=== PATIENT | male | born 1975 | race Caucasian/White ===

== ENCOUNTER 2016-10-10 22:16 | Emergency (ER) | payer OTHER ==
[2016-10-10 22:50] VITALS: BP 134/87; PULSE 71; RESP 18; TEMP 97.9
[2016-10-11] MEDS ORDERED: chlordiazePOXIDE 25 MG CAP PO STA (00:54)
--- NOTE | 2016-10-11 01:05 | ED ---
Recheck HPI - General Chief Complaint: Recheck/Abnormal Lab/Rx Stated Complaint: Shaking/Detox Time Seen by Provider: 10/11/16 00:49 Source: patient, RN notes reviewed Mode of arrival: ambulatory Limitations: no limitations - History of Present Illness Initial Comments: Patient is a 40 year old male with a history of chronic alcohol abuse stating that he wants medications to help him go through detox. He reports last drink was 4 hours ago. Patients BAT was .171. Patient states he plans to go to [facility] on Sunday of next week. Patient states that he has been to rehab in the past. Patient denies any other drug use besides alcohol. Patient state he has drank since he was 14 years old and drinks nearly a fifth a day. Patient reports he is already going through withdrawals, and feels shaky and nauseated. Patient denies any other stymptoms. - Related Data Previous Rx's Medication Instructions Recorded LORazepam [Ativan] 1 mg PO TID #20 tab 10/11/16 Ondansetron [Zofran] 4 mg PO Q8HR PRN #8 tab 10/11/16 Allergies Allergy/AdvReac Type Severity Reaction Status Date / Time No Known Allergies Allergy Verified 10/10/16 22:50 Review of Systems ROS Statement: Those systems with pertinent positive or pertinent negative responses have been documented in the HPI. ROS Other: All systems not noted in ROS Statement are negative. Past Medical History Additional Past Medical History / Comment(s): HX OF BLOOD IN STOOL, HX OF MONO PAST MONTH History of Any Multi-Drug Resistant Organisms: MRSA Date of last positivie culture/infection: 2007 MDRO Source:: LEG Past Surgical History: Tonsillectomy Past Anesthesia/Blood Transfusion Reactions: No Reported Reaction Past Psychological History: Anxiety, Bipolar, Depression Smoking Status: Current every day smoker Past Alcohol Use History: Abuse, Daily, Heavy Additional Past Alcohol Use History / Comment(s): STATES RECOVERING ALCHOHOLIC AND CRACK COCAINE USE. HAS NOT USED IN 3 MONTHS Past Drug Use History: Marijuana Additional Drug Use History / Comment(s): HX OF CRACK USE, GREATER THAN 3 MONTHS SINCE LAST USED - Past Family History Mother Family Medical History: No Reported History General Exam - General Exam Comments Initial Comments: Well appearing 40 year old male. Patient is in no acute didstress. Alert and Oriented X3. Limitations: no limitations General appearance: alert, in no apparent distress Head exam: Present: atraumatic, normocephalic, normal inspection Eye exam: Present: normal appearance, PERRL, EOMI. Absent: scleral icterus, conjunctival injection, periorbital swelling ENT exam: Present: normal exam, mucous membranes moist Neck exam: Present: normal inspection. Absent: tenderness, meningismus, lymphadenopathy Respiratory exam: Present: normal lung sounds bilaterally. Absent: respiratory distress, wheezes, rales, rhonchi, stridor Cardiovascular Exam: Present: regular rate, normal rhythm, normal heart sounds. Absent: systolic murmur, diastolic murmur, rubs, gallop, clicks Extremities exam: Present: normal inspection, full ROM, normal capillary refill. Absent: tenderness, pedal edema, joint swelling, calf tenderness Back exam: Present: normal inspection Neurological exam: Present: alert, oriented X3, CN II-XII intact Psychiatric exam: Present: normal affect, agitated (Patient was extremely agitated with wait time to be seen and was rude to physician and nursing staff. ). Absent: normal mood Skin exam: Present: warm, dry, intact, normal color. Absent: rash Course Vital Signs 10/10/16 22:48 Temperature 97.9 F Pulse Rate 71 Respiratory 18 Rate Blood Pressure 134/87 O2 Sat by Pulse 96 Oximetry Medical Decision Making - Medical Decision Making Patient is a 40 year old male with a history of heavy alcohol abuse wanting to have help with detox. Patient reports he drinks near a fifth a day. This is his second time going thorugh treatment. He was sober 9 months ago. He states he is going to [facility] in one week. Patient reports he is already going through withdrawals, but BAT is .117. Patient given Librium in EC. Patient was extremely agitated and forceful with staff about wait times. I explained to patient that the EC is extremely busy at this time, and we are trying our best for everyone. Patient replied with cursing and with a foul attitude. Patients vital signs are stable, no physical exam findings. PAtient disharged with Ativan Rx, and Zofran Rx. Return parameters discussed. Disposition Clinical Impression: Alcohol withdrawal Disposition: HOME SELF-CARE Condition: Good Prescriptions: LORazepam [Ativan] 1 mg PO TID #20 tab Ondansetron [Zofran] 4 mg PO Q8HR PRN #8 tab PRN Reason: Nausea And Vomiting Referrals: Mayuri Conner MD [Primary Care Provider] - 1-2 days Time of Disposition: 01:05
[2016-10-11] MEDS ORDERED: ONDANSETRON 4 MG ODT STARTER PACK 2 TAB BTL PO STA (01:30)
[2016-10-11] MEDS ORDERED: LORazepam 1 MG TAB PO STA (01:31)
== END 2016-10-11 01:44 | disposition home or self-care (01) ==
LOC: EC 22:16
DX: F10.239 Alcohol dependence with withdrawal, unspecified (principal); Y90.5 Blood alcohol level of 100-119 mg/100 ml; F17.200 Nicotine dependence, unspecified, uncomplicated; Z86.14 Personal history of Methicillin resistant Staphylococcus aureus infection
CPT/HCPCS: 99283; S0119

== ENCOUNTER 2017-02-13 16:38 | Observation (INO) | payer OTHER ==
[2017-02-13] MEDS ORDERED: HYDROmorphone 1 MG/ML 1 ML SYRINGE IVP STA (17:10)
[2017-02-13] MEDS ORDERED: PANTOPRAZOLE 40 MG/10 ML VIAL IVP STA (17:10)
[2017-02-13] MEDS ORDERED: SODIUM CHLORIDE 0.9% 1,000 ML IV STA (17:10)
[2017-02-13] MEDS ORDERED: ONDANSETRON 4 MG/2 ML VIAL IVP STA (17:10)
--- NOTE | 2017-02-13 17:16 | ED ---
Abdominal Pain HPI - General Chief Complaint: Abdominal Pain Stated Complaint: Abd Pain Time Seen by Provider: 02/13/17 17:00 Source: patient, RN notes reviewed, old records reviewed Mode of arrival: ambulatory Limitations: no limitations - History of Present Illness Initial Comments: This is a 41-year-old male presenting to the emergency department with chief complaint of lower abdominal pain. Patient reports that he's had pain off and on for the past 4 months. Patient reports that the pain will occur for 4 days and then have a day of relief and then will recur again. He reports he has seen Dr. Lux primary care physician recently was prescribed Bentyl and antibiotic. Patient reports that was no help. Patient also reports that he has had significant blood in his stool. Patient states that he had 2 episodes of bloody diarrhea yesterday. Patient reports that he the pain mainly is located in the lower left quadrant radiating into left upper quadrant. She reports that the pain occasionally radiates to his back. She denies any vomiting. It is noted in the patient's chart that he was seen in the emergency Department 4 months ago for alcohol withdrawals. Patient denies any recent alcohol use, patient reports that he has been sober for the past 4 months. Patient denies any recent fever, chills, shortness of breath, chest pain, numbness or tingling, dysuria or hematuria, constipation or diarrhea, headaches or visual changes, or any other current symptoms - Related Data Home Medications Medication Instructions Recorded Confirmed Escitalopram [Lexapro] 20 mg PO DAILY 02/13/17 02/13/17 Multivitamins, Thera [Multivitamin 1 tab PO DAILY 02/13/17 02/13/17 (formulary)] Allergies Allergy/AdvReac Type Severity Reaction Status Date / Time No Known Allergies Allergy Verified 02/13/17 17:10 Review of Systems ROS Statement: Those systems with pertinent positive or pertinent negative responses have been documented in the HPI. ROS Other: All systems not noted in ROS Statement are negative. Past Medical History Additional Past Medical History / Comment(s): HX OF BLOOD IN STOOL, HX OF MONO PAST MONTH History of Any Multi-Drug Resistant Organisms: MRSA Date of last positivie culture/infection: 2007 MDRO Source:: LEG Past Surgical History: Tonsillectomy Past Anesthesia/Blood Transfusion Reactions: No Reported Reaction Past Psychological History: Anxiety, Bipolar, Depression Smoking Status: Current every day smoker Past Alcohol Use History: Abuse, Daily, Heavy Additional Past Alcohol Use History / Comment(s): STATES RECOVERING ALCHOHOLIC AND CRACK COCAINE USE. HAS NOT USED IN 3 MONTHS Past Drug Use History: Marijuana Additional Drug Use History / Comment(s): HX OF CRACK USE, GREATER THAN 3 MONTHS SINCE LAST USED - Past Family History Mother Family Medical History: No Reported History General Exam - General Exam Comments Initial Comments: Pleasant 41-year-old male. No acute distress. Limitations: no limitations General appearance: alert Head exam: Present: atraumatic, normocephalic, normal inspection Eye exam: Present: normal appearance, PERRL, EOMI. Absent: scleral icterus, conjunctival injection, periorbital swelling ENT exam: Present: normal exam, mucous membranes moist Neck exam: Present: normal inspection. Absent: tenderness, meningismus, lymphadenopathy Respiratory exam: Present: normal lung sounds bilaterally. Absent: respiratory distress, wheezes, rales, rhonchi, stridor Cardiovascular Exam: Present: regular rate, normal rhythm, normal heart sounds. Absent: systolic murmur, diastolic murmur, rubs, gallop, clicks GI/Abdominal exam: Present: soft, tenderness (Left lower quadrant left upper quadrant tenderness.), normal bowel sounds. Absent: distended, guarding, rebound, rigid Extremities exam: Present: normal inspection, full ROM, normal capillary refill. Absent: tenderness, pedal edema, joint swelling, calf tenderness Back exam: Present: normal inspection Neurological exam: Present: alert, oriented X3, CN II-XII intact Psychiatric exam: Present: normal affect, normal mood Skin exam: Present: warm, dry, intact, normal color. Absent: rash Course Vital Signs 02/13/17 16:49 Temperature 97.8 F Pulse Rate 75 Respiratory 20 Rate Blood Pressure 111/64 O2 Sat by Pulse 99 Oximetry Medical Decision Making - Medical Decision Making This is a 41-year-old male presenting to the emergency department with chief complaint of lower abdominal pain. Patient reports that he's had pain off and on for the past 4 months. Patient reports that the pain will occur for 4 days and then have a day of relief and then will recur again. He reports he has seen Dr. Lux primary care physician recently was prescribed Bentyl and antibiotic. Patient reports that was no help. Patient also reports that he has had significant blood in his stool. Patient states that he had 2 episodes of bloody diarrhea yesterday. Patient reports that he the pain mainly is located in the lower left quadrant radiating into left upper quadrant. She reports that the pain occasionally radiates to his back. She denies any vomiting. It is noted in the patient's chart that he was seen in the emergency Department 4 months ago for alcohol withdrawals. Patient denies any recent alcohol use, she reports he has been sober for the past 4 months. Labwork was reviewed. Patient has elevated amylase and lipase. Discusses history Dr. Menezes. Patient be admitted for pancreatitis, this is likely related to chronic pain return to history of alcoholism however patient does state that he has not drank recently to cause an acute attack of this. Patient is still concerned about his abnormal bowel movements and rectal pain. Discussed that the admitting physician can further evaluate this. - Lab Data Result diagrams: 02/13/17 17:35 02/13/17 17:35 Lab Results 02/13/17 02/13/17 02/13/17 Range/Units 17:35 17:35 17:35 WBC 8.1 (3.8-10.6) k/uL RBC 5.08 (4.30-5.90) m/uL Hgb 14.6 (13.0-17.5) gm/dL Hct 44.4 (39.0-53.0) % MCV 87.3 (80.0-100.0) fL MCH 28.7 (25.0-35.0) pg MCHC 32.9 (31.0-37.0) g/dL RDW 14.3 (11.5-15.5) % Plt Count 198 (150-450) k/uL Neutrophils % 60 % Lymphocytes % 28 % Monocytes % 6 % Eosinophils % 3 % Basophils % 1 % Neutrophils # 4.9 (1.3-7.7) k/uL Lymphocytes # 2.3 (1.0-4.8) k/uL Monocytes # 0.5 (0-1.0) k/uL Eosinophils # 0.3 (0-0.7) k/uL Basophils # 0.0 (0-0.2) k/uL PT 10.7 (9.0-12.0) sec INR 1.1 (<1.1) APTT 26.1 (22.0-30.0) sec Sodium 142 (137-145) mmol/L Potassium 3.9 (3.5-5.1) mmol/L Chloride 107 (98-107) mmol/L Carbon Dioxide 24 (22-30) mmol/L Anion Gap 11 mmol/L BUN 13 (9-20) mg/dL Creatinine 1.05 (0.66-1.25) mg/dL Est GFR (MDRD) Af Amer >60 (>60 ml/min/1.73 sqM) Est GFR (MDRD) Non-Af >60 (>60 ml/min/1.73 sqM) Glucose 92 (74-99) mg/dL Calcium 9.6 (8.4-10.2) mg/dL Total Bilirubin 0.5 (0.2-1.3) mg/dL AST 21 (17-59) U/L ALT 27 (21-72) U/L Alkaline Phosphatase 49 (38-126) U/L Total Protein 6.9 (6.3-8.2) g/dL Albumin 4.3 (3.5-5.0) g/dL Amylase 133 H (30-110) U/L Lipase 525 H (23-300) U/L Urine Color Urine Appearance (Clear) Urine pH (5.0-8.0) Ur Specific [place] (1.001-1.035) Urine Protein (Negative) Urine Glucose (UA) (Negative) Urine Ketones (Negative) Urine Blood (Negative) Urine Nitrite (Negative) Urine Bilirubin (Negative) Urine Urobilinogen (<2.0) mg/dL Ur Leukocyte Esterase (Negative) Stool Occult Blood (Negative) 02/13/17 02/13/17 Range/Units 18:00 18:30 WBC (3.8-10.6) k/uL RBC (4.30-5.90) m/uL Hgb (13.0-17.5) gm/dL Hct (39.0-53.0) % MCV (80.0-100.0) fL MCH (25.0-35.0) pg MCHC (31.0-37.0) g/dL RDW (11.5-15.5) % Plt Count (150-450) k/uL Neutrophils % % Lymphocytes % % Monocytes % % Eosinophils % % Basophils % % Neutrophils # (1.3-7.7) k/uL Lymphocytes # (1.0-4.8) k/uL Monocytes # (0-1.0) k/uL Eosinophils # (0-0.7) k/uL Basophils # (0-0.2) k/uL PT (9.0-12.0) sec INR (<1.1) APTT (22.0-30.0) sec Sodium (137-145) mmol/L Potassium (3.5-5.1) mmol/L Chloride (98-107) mmol/L Carbon Dioxide (22-30) mmol/L Anion Gap mmol/L BUN (9-20) mg/dL Creatinine (0.66-1.25) mg/dL Est GFR (MDRD) Af Amer (>60 ml/min/1.73 sqM) Est GFR (MDRD) Non-Af (>60 ml/min/1.73 sqM) Glucose (74-99) mg/dL Calcium (8.4-10.2) mg/dL Total Bilirubin (0.2-1.3) mg/dL AST (17-59) U/L ALT (21-72) U/L Alkaline Phosphatase (38-126) U/L Total Protein (6.3-8.2) g/dL Albumin (3.5-5.0) g/dL Amylase (30-110) U/L Lipase (23-300) U/L Urine Color Yellow Urine Appearance Clear (Clear) Urine pH 6.0 (5.0-8.0) Ur Specific [place] 1.011 (1.001-1.035) Urine Protein Negative (Negative) Urine Glucose (UA) Negative (Negative) Urine Ketones Negative (Negative) Urine Blood Negative (Negative) Urine Nitrite Negative (Negative) Urine Bilirubin Negative (Negative) Urine Urobilinogen <2.0 (<2.0) mg/dL Ur Leukocyte Esterase Negative (Negative) Stool Occult Blood Negative (Negative) - Radiology Data Radiology results: report reviewed KUB was reviewed negative for any significant bowel obstruction or acute process. Disposition Clinical Impression: Pancreatitis Disposition: ADMITTED IP TO THIS [facility] Condition: Good Referrals: Mayuri Conner MD [Primary Care Provider] - 1-2 days Time of Disposition: 18:26
[2017-02-13 17:54] LABS: Basophils % (A) 1 %; CH 29.5; CHCM 33.9; Eosinophils # (A) 0.3 k/uL (0-0.7); Eosinophils % (A) 3 %; HCT 44.4 % (39.0-53.0); HDW 2.69; HGB 14.6 gm/dL (13.0-17.5); Luc # (Auto) 0.18; Luc % (Auto) 2; Lymphocytes # (A) 2.3 k/uL (1.0-4.8); Lymphocytes % (A) 28 %; MCH 28.7 pg (25.0-35.0); MCHC 32.9 g/dL (31.0-37.0); MCV 87.3 fL (80.0-100.0); Mean Platelet Volume 7.7; Monocytes # (A) 0.5 k/uL (0-1.0); Monocytes % (A) 6 %; Neutrophils # (A) 4.9 k/uL (1.3-7.7); Neutrophils % (A) 60 %; RBC 5.08 m/uL (4.30-5.90); RDW 14.3 % (11.5-15.5); WBC 8.1 k/uL (3.8-10.6); WBC (Perox) 7.48
[2017-02-13 17:56] LABS: ALT 27 U/L (21-72); AST 21 U/L (17-59); Alkaline Phosphatase 49 U/L (38-126); Amylase 133 U/L (30-110); Anion Gap 11 mmol/L; Blood Urea Nitrogen 13 mg/dL (9-20); Calcium 9.6 mg/dL (8.4-10.2); Carbon Dioxide 24 mmol/L (22-30); Chloride 107 mmol/L (98-107); Glucose 92 mg/dL (74-99); INR 1.1 (<1.1); Non-African American GFR(MDRD) >60 (>60 ml/min/1.73 sqM); Partial Thromboplastin Time 26.1 sec (22.0-30.0); Potassium 3.9 mmol/L (3.5-5.1); Prothrombin Time 10.7 sec (9.0-12.0); Sodium 142 mmol/L (137-145); Total Bilirubin 0.5 mg/dL (0.2-1.3); Total Protein 6.9 g/dL (6.3-8.2)
[2017-02-13] MEDS ORDERED: ONDANSETRON 4 MG/2 ML VIAL IVP PRN (18:27)
[2017-02-13] MEDS ORDERED: HYDROmorphone 1 MG/ML 1 ML SYRINGE IV PRN (18:27)
[2017-02-13] MEDS ORDERED: NALOXONE 0.4 MG/ML 1 ML VIAL IV PRN (18:27)
[2017-02-13] MEDS ORDERED: LORazepam 2 MG/ML SYRINGE IV PRN (18:27)
[2017-02-13 18:37] LABS: Appearance,Urine Clear (Clear); Bilirubin,Urine Negative (Negative); Glucose,Urine (UA) Negative (Negative); Ketones,Urine Negative (Negative); Leukocyte Esterase,Urine Negative (Negative); Nitrite,Urine Negative (Negative); Protein,Urine Negative (Negative); Specific Gravity,Urine 1.011 (1.001-1.035); UA Billing (MACRO vs. MICRO) CHEM; Urobilinogen,Urine <2.0 mg/dL (<2.0)
--- NOTE | 2017-02-13 18:47 | XR ---
EXAMINATION TYPE: XR KUB DATE OF EXAM: 02/13/2017 COMPARISON: NONE HISTORY: Left lower quadrant pain TECHNIQUE: 2 views FINDINGS: I see no sign of intestinal obstruction or pneumoperitoneum. Fecal pattern is normal. Lung bases are clear. There are no pathologic calcifications over the kidneys. Bony structures are intact. IMPRESSION: Nonacute abdomen.
[2017-02-13] MEDS: Acetaminophen-Codeine 300-30mg TAB PO PRN ×2 (18:57→23:00)
[2017-02-13] MEDS: SODIUM CHLORIDE 0.9% 1,000 ML IV SCH (19:57)
[2017-02-13] MEDS ORDERED: RX INFO: IV CONTRAST WAS GIVEN 1 EACH MISC MISCELLANE PRN (22:27)
[2017-02-13] MEDS: CALCIUM CARBONATE LIQUID 500 MG/5 ML CUP PO SCH (22:34)
[2017-02-13] MEDS: PANTOPRAZOLE 40 MG TABLET PO SCH (22:36)
[2017-02-14] MEDS: SODIUM CHLORIDE 0.9% 1,000 ML IV SCH ×3 (03:21→20:32)
[2017-02-14] MEDS: Acetaminophen-Codeine 300-30mg TAB PO PRN ×4 (06:56→20:30)
[2017-02-14] MEDS: IOHEXOL 350 MG/ML 25 ML BOTTLE (ORAL USE) PO PRN ×2 (06:56→08:11)
--- NOTE | 2017-02-14 07:42 | HP ---
DATE OF ADMISSION: 02/13/2017 PRESENTING COMPLAINT: Abdominal pain, nausea. HISTORY OF PRESENTING COMPLAINT: This is a very pleasant man 41-year-old patient of Dr. Mayuri Cox who has got a history of hemorrhoids, was drinking 6 to 12 beers a day, stopped 4 months ago. Also was taking marijuana, stopped doing crack cocaine about 3 years ago. Patient smokes a pack a day of cigarettes. Patient has got left lower abdominal pain, going on and off for about 4 months. He had bouts of severe increased pain and decreased nausea. Last 2 days, patient had increasing loose stools about 6 to 12. No blood. Appetite has gone down, loss some weight. Admitted for the same. REVIEW OF SYSTEMS: CONSTITUTIONAL: Weak, tired, loss of appetite. HEENT: None. RESPIRATORY: None. CARDIOVASCULAR: None. GASTROINTESTINAL: As above. GENITOURINARY: None. MUSCULOSKELETAL: None. DERMATOLOGIC: None. HEMATOLOGIC: None. LYMPHATICS: None. PSYCHIATRY: Some anxiety. NEUROLOGICAL: None. PAST MEDICAL HISTORY: Intermittent blood in the stools had colonoscopy showing diverticulosis, hemorrhoids. Diarrhea 6 to 12 times a day and appetite has not been good. PAST SURGICAL HISTORY: Tonsillectomy, colonoscopy. PSYCH HISTORY: Bipolar. SOCIAL HISTORY: The patient lives with his girlfriend, has a 4-month-old son. Currently not working. From a previous girlfriend has 6-year-old child who is in [place]. He does not know the whereabouts. Smokes about a pack a day. Recovered alcoholic in 4 months, crack cocaine use 3 years ago, marijuana use, currently. FAMILY HISTORY: Reviewed noncontributory on presentation. HOME MEDICATIONS: 1. Multivitamin 1 tablet p.o. daily. 2. Lexapro 20 mg p.o. daily. ALLERGIES: None. On examination, temperature 97.1, pulse 50, respiration 16, blood pressure 108/61, pulse ox 96% on room air. GENERAL APPEARANCE: Average built, sitting up, anxious appearing. EYES: Pupils equal. Conjunctivae normal. HEENT: Oral cavity normal. NECK: JVD not raised. Mass not palpable. RESPIRATORY: Effort normal. Lungs are clear. CARDIOVASCULAR: First and second sounds normal. No edema. ABDOMEN: Soft, some left abdomen tenderness. No guarding or rigidity. Liver and spleen not palpable. LYMPHATIC: No lymph palpable in neck or axillae. PSYCHIATRY: Alert and oriented x3. Mood is slightly anxious appearing. NEUROLOGICAL: Pupils equal. Cranial nerves grossly intact. Power and sensation grossly intact. INVESTIGATIONS: Nonspecific abdomen. ASSESSMENT: 1. This is a patient who presented with left abdominal pain with intermittent diarrhea, intermittent blood. Patient may have low-grade colitis. 2. Possible acute on chronic gastritis from alcoholism. 3. Chronic nicotine dependence. 4. Hemorrhoids. 5. Chronic marijuana use. 6. Acute pancreatitis secondary to alcoholism, present on admission. PLAN: Will order a CT scan of the abdomen and pelvis. Will put the patient on IV ceftriaxone, put the patient on a liquid diet. Counseled against smoking, given a nicotine patch. Will also put the patient on proton pump inhibitor and some Tums for the GI lining. Gastroenterology will be consulted. Care was discussed with the patient.
[2017-02-14] MEDS: CALCIUM CARBONATE LIQUID 500 MG/5 ML CUP PO SCH ×3 (08:53→18:29)
[2017-02-14] MEDS: NICOTINE 21MG/24HR PATCH TRANSDERM SCH (08:53)
[2017-02-14] MEDS: ESCITALOPRAM 20 MG TAB PO SCH (08:54)
[2017-02-14 09:14] LABS: Basophils % (A) 1 %; CH 29.1; CHCM 33.8; Eosinophils # (A) 0.4 k/uL (0-0.7); Eosinophils % (A) 6 %; HDW 2.88; HGB 13.6 gm/dL (13.0-17.5); Luc # (Auto) 0.16; Luc % (Auto) 3; Lymphocytes # (A) 2.4 k/uL (1.0-4.8); Lymphocytes % (A) 42 %; MCH 29.3 pg (25.0-35.0); MCHC 33.9 g/dL (31.0-37.0); MCV 86.5 fL (80.0-100.0); Mean Platelet Volume 7.6; Monocytes # (A) 0.3 k/uL (0-1.0); Monocytes % (A) 6 %; Neutrophils # (A) 2.4 k/uL (1.3-7.7); Neutrophils % (A) 42 %; RBC 4.63 m/uL (4.30-5.90); WBC 5.6 k/uL (3.8-10.6); WBC (Perox) 5.84
[2017-02-14 09:27] LABS: ALT 25 U/L (21-72); AST 23 U/L (17-59); Alkaline Phosphatase 40 U/L (38-126); Amylase 99 U/L (30-110); Anion Gap 8 mmol/L; Blood Urea Nitrogen 11 mg/dL (9-20); Calcium 8.6 mg/dL (8.4-10.2); Carbon Dioxide 22 mmol/L (22-30); Chloride 110 mmol/L (98-107); Glucose 141 mg/dL (74-99); Non-African American GFR(MDRD) >60 (>60 ml/min/1.73 sqM); Potassium 4.1 mmol/L (3.5-5.1); Sodium 140 mmol/L (137-145); Total Bilirubin 0.6 mg/dL (0.2-1.3); Total Protein 5.7 g/dL (6.3-8.2)
[2017-02-14] MEDS: HYDROmorphone 1 MG/ML 1 ML SYRINGE IVP PRN ×4 (10:39→23:12)
[2017-02-14] MEDS: PANTOPRAZOLE 40 MG TABLET PO SCH (10:51)
[2017-02-14] MEDS: LOPERAMIDE 2 MG CAP PO SCH ×4 (10:55→23:15)
[2017-02-14 11:27] VITALS: BMI 24.3
--- NOTE | 2017-02-14 11:40 | P.CONS ---
History of Present Illness - Reason for Consult Consult date: 02/14/17 Abdominal pain Requesting physician: Clayton Trent - History of Present Illness 41-year-old male with a history of EtOH abuse last alcoholic drink 4 months ago , cocaine last usage about 3 years ago, diverticulosis, hemorrhoids, marijuana usage, anxiety, depression and nicotine cigarette dependency. Admitted with abdominal pain over the last 4 months mostly in the mid to lower abdomen radiating down to his bilateral thighs groin region and upper back. Pain is so severe he states he has intermittent erections. Loose bowel movements blood tinged which he thinks is hemorrhoidal in nature. Afebrile. White count 8.1. Hemoglobin 14.6. INR 1.1. Platelet 198. BUN 13. Creatinine 1.0. Lipase 525. Amylase 133. Lipase today for 14. Amylase 99. LFTs total bilirubin normal. Hemoccult stool negative. C. diff negative. CT abdomen completed this morning results pending at time of dictation. Colonoscopy evaluation March 2016 for intermittent rectal bleeding and to rule out inflammatory bowel disease revealed low-grade internal hemorrhoids not bleeding at time of exam most likely cause of his bleeding. Diverticulosis with no evidence of acute diverticulitis or strictures. No polyps or cancer seen. Patient states he has another colonosocpy scheduled at the end of this month with Dr. Torres. Review of Systems Constitutional: Denies fever, chills, sweats, weight gain, or loss. HEENT: Negative for migraines, blurred vision or loss, earaches, drainage, tinnitus, oral mucosal lesions, dysphagia, or odynophagia. Cardiac: Negative for chest pain, arrhythmias, or palpitation. Respiratory: Negative for shortness of breath, hemoptysis, cough, or sputum production. Gastrointestinal: See HPI for pertinent findings. Genitourinary: Negative for hematuria, urgency, frequency, polyuria, dysuria, or penile discharge. Musculoskeletal: Negative for muscle aches, swelling, arthritis, and arthralgias. Neurologic: Negative for stroke or TIA. Endocrine: Negative for thyroid problems. Skin: Negative for rash or itching. Psychiatric: Negative history for depression and anxiety All systems: negative (See HPI) Past Medical History Additional Past Medical History / Comment(s): HX OF INTERMITTENT BLOOD IN STOOL HAD COLONOSCOPY - DIVERTICULOSIS,HEMORRHOIDS, HX OF MONO 2016, PALPITATIONS. PT STATED FOR PAST 2 MONTHS HAVING DIARRHEA 6-12 TIMES A DAY AND MAYBE HAVE 1 GOOD DAY OUT OF WEEK WHERE HE DOES'NT(DID'NT HAVE ANY YESTERDAY), "30# WT LOSS OVER 2 MONTHS-APPETITE HAS'NT BEEN GOOD. History of Any Multi-Drug Resistant Organisms: MRSA Year Discovered:: 2007 MDRO Source:: LEGS Past Surgical History: Tonsillectomy Additional Past Surgical History / Comment(s): COLONOSCOPY Past Anesthesia/Blood Transfusion Reactions: No Reported Reaction Past Psychological History: Anxiety, Bipolar, Depression Additional Psychological History / Comment(s): PT STATED HE HAS SOME DEPRESSION BUT HAS NO THOUGHTS OF WANTING TO HARM SELF. PT LIVES WITH GIRL FRIEND AND HAS A 4 MONTH OLD SON. 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 NO OUTSIDE SERVICES. NO MEDICAL EQUIPMENT. NO PETS. NO PAST SERVICE. DOES [employer] WORK. Smoking Status: Current every day smoker Past Alcohol Use History: Abuse, Daily, Heavy Additional Past Alcohol Use History / Comment(s): STATES RECOVERING ALCHOHOLIC HAS'NT DRANK IN 4 MONTHS.PAST CRACK COCAINE USE-"HAS'NT USED IN 3 YEARS". Past Drug Use History: Cocaine, Marijuana Additional Drug Use History / Comment(s): HX OF CRACK USE-LAST USED 3 YEARS AGO. DOES USE MARIJUANA-LAST USED 02-13-17 - Past Family History Mother Family Medical History: No Reported History Father Family Medical History: No Reported History Medications and Allergies Home Medications Medication Instructions Recorded Confirmed Type Escitalopram [Lexapro] 20 mg PO DAILY 02/13/17 02/13/17 History Multivitamins, Thera [Multivitamin 1 tab PO DAILY 02/13/17 02/13/17 History (formulary)] Allergies Allergy/AdvReac Type Severity Reaction Status Date / Time No Known Allergies Allergy Verified 02/13/17 17:10 Physical Exam Vitals: Vital Signs Temp Pulse Pulse Resp BP BP BP 02/14/17 07:00 96.9 F L 50 L 16 118/60 02/13/17 23:00 97.3 F L 56 L 18 108/70 02/13/17 19:31 97.1 F L 50 L 16 108/61 02/13/17 19:11 98.4 F 54 L 18 107/55 02/13/17 16:49 97.8 F 75 20 111/64 Pulse Ox 02/14/17 07:00 98 02/13/17 23:00 98 02/13/17 19:31 96 02/13/17 19:11 97 02/13/17 16:49 99 Intake and Output 02/13/17 02/14/17 02/14/17 22:59 06:59 14:59 Intake Total 0 0 Balance 0 0 Intake: Oral 0 0 Other: # Voids 2 Weight 72.575 kg 72.575 kg Patient Weight 02/15/17 06:59 Weight 72.575 kg General appearance: The patient is alert, oriented, in no acute distress. HET: Head is normocephalic and atraumatic. Pupils are equal and reactive. Oropharynx is clear without lesions. Neck: Supple without lymphadenopathy. Trachea midline. Heart: S1 S2. Regular rate and rhythm. Lungs: No crackles or wheezes are heard. Abdomen: Soft, nontender, nondistended with bowel sounds. No peritoneal signs. No palpable organomegaly or masses. Extremities: Normal skin color and turgor. No cyanosis, rash, ulceration, clubbing, or edema. Radial and pedal pulses are 2/4 bilaterally. Neurological: No focal deficits. Strength and sensation are grossly intact. Results CBC & Chem 7: 02/14/17 08:06 02/14/17 08:06 Labs: Abnormal Lab Results - Last 24 Hours (Table) 02/13/17 02/14/17 Range/Units 17:35 08:06 Chloride 110 H (98-107) mmol/L Glucose 141 H (74-99) mg/dL Total Protein 5.7 L (6.3-8.2) g/dL Albumin 3.4 L (3.5-5.0) g/dL Amylase 133 H (30-110) U/L Lipase 525 H 414 H (23-300) U/L CT scan - abdomen: pending (Dr. Musa) Assessment and Plan (1) Pancreatitis Narrative/Plan: Abdominal pain suspect alcohol-induced pancreatitis which could be contributing to his chronic pain over the last 4 months. Possible pseudocyst. Status: Acute (2) Abdominal pain Status: Acute (3) Hemorrhoids Narrative/Plan: Intermittent rectal bleeding most likely hemorrhoidal in nature possible diverticular status post colonoscopy March 2016 Status: Acute (4) H/O ETOH abuse Status: Acute (5) Cocaine abuse in remission Status: Acute Plan: 1. Symptomatic supportive measures. Await CT findings. Repeat Lipase in am. 2. Continuance of alcohol abstinence. 3. Local hemorrhoidal care. 4. Repeat endoscopy not planned at this time. 5. Full liquid diet. Stool softeners daily to prevent constipation and hemorrhoidal flareups as needed. Bentyl 10 mg 4 times daily to see if this helps with abdominal cramping. Return to office in 1-2 weeks for reevaluation. Thank you for this kind referral and the opportunity to participate in the care of your patient. This consultation was discussed with Dr. Musa. The impression and plan of care have been directed as dictated.
[2017-02-14] MEDS: DICYCLOMINE 10 MG CAP PO SCH ×3 (12:07→23:12)
[2017-02-14] MEDS: MULTIVITAMINS, THERA 1 EACH TAB PO SCH (12:08)
[2017-02-14] MEDS ORDERED: LOPERAMIDE 2 MG CAP PO SCH (13:00)
--- NOTE | 2017-02-14 13:41 | CT ---
EXAMINATION TYPE: CT abdomen pelvis w con DATE OF EXAM: 02/14/2017 COMPARISON: NONE INDICATION: wt loss, diarrhea DLP: 918 mGycm, Automated exposure control for dose reduction was used. CONTRAST: 100 mL of Omnipaque 300. Study performed with Oral Contrast TECHNIQUE: Axial images were obtained from above the diaphragm to the pubic rami in the axial plane a t 5 mm thick sections. Reconstructed images are reviewed on the computer in the coronal plane. FINDINGS: Limited CT sections are obtained the lung bases. The lung bases are clear. CT ABDOMEN: Liver: Normal Spleen: Normal. Spondylosis in the splenic hilum. Pancreas: Normal Adrenal glands: The adrenal glands are normal. Gallbladder: Normal Kidneys: No masses are evident. No hydronephrosis is present. No cysts are present. Delayed images were obtained through the kidneys, which remain unremarkable. Aorta: Vascular calcification is within the aorta. Inferior vena cava: Normal. CT PELVIS: There is mild prominence of the small bowel loops in the left upper quadrant. No obstruction is evide nt. Contrast extends to the rectum. There are loops of bowel which are incompletely distended or lack oral contrast limiting their evaluation. Appendix: Normal as visualized. Urinary bladder: Normal. Genitourinary structures: Prostate contains calcification and may be slightly prominent. Osseous structures: No suspicious lytic or sclerotic lesions. IMPRESSIONS: 1. Mild prominence of the proximal small bowel loops without obstruction.
--- NOTE | 2017-02-14 19:44 | PN ---
DATE OF SERVICE: 02/14/2017 PRESENTING COMPLAINT: Abdominal pain, nausea. INTERVAL HISTORY: This is a patient who was drinking quite a bit. Also doing crack cocaine, marijuana until about 3 years ago, smokes a pack a day, presents with episodes of what appears to be pancreatitis. The patient ( ) actually looking better. Still having some abdominal pain. Diarrhea is settled down. Seen by Gastroenterology earlier today. CT scan did not show any colitis. Review of systems done for constitutional, cardiovascular, GI, pulmonary; relevant findings as above. Current medications are reviewed that include Dilaudid IV q4 hours. On examination, temperature 97.2, pulse 60, respiration 16, blood pressure 108/72, pulse ox 96% on room air. GENERAL APPEARANCE: Sitting up in a chair, comfortable. EYES: Pupils equal. Conjunctivae normal. NECK: JVD not raised. Mass not palpable. RESPIRATORY: Effort normal. Lungs are clear. CARDIOVASCULAR: First and second sounds normal. No edema. ABDOMEN: Very soft. Minimal some deep tenderness. No guarding or rigidity. Liver and spleen not palpable. LYMPHATIC: No lymph nodes palpable in the neck and axilla. Psychiatric: Alert and oriented x3. Mood and affect is normal. INVESTIGATIONS: White count 5.6, potassium 4.1, amylase is 99, lipase 414. ASSESSMENT: 1. Acute pancreatitis with ( ) alcoholism present on admission with biochemical greatly improved even actually amylase is normal. 2. Chronic marijuana use. 3. Hemorrhoids. 4. Chronic nicotine dependence. 5. Possible acute on chronic gastritis from alcoholism. PLAN: The patient is on a rather hefty dose of Dilaudid given that patient Amylase is already normal. Gastroenterology was consulted. We will await further input. If patient gets more pain, we will give heating pad. K-pad. Patient already getting Protonix. Also TUMS was added. Care was discussed with the patient. Follow.
[2017-02-14] MEDS ORDERED: HYDROCORTISONE SUPPOSITORY 25 MG SUPP RECTAL SCH (21:00)
[2017-02-15] MEDS: Acetaminophen-Codeine 300-30mg TAB PO PRN ×3 (00:37→09:37)
[2017-02-15] MEDS: HYDROmorphone 1 MG/ML 1 ML SYRINGE IVP PRN ×2 (02:57→07:53)
[2017-02-15] MEDS: SODIUM CHLORIDE 0.9% 1,000 ML IV SCH ×2 (04:51→11:38)
[2017-02-15 07:59] VITALS: BP 105/61; PULSE 58; RESP 12; TEMP 96.5
[2017-02-15] MEDS: CALCIUM CARBONATE LIQUID 500 MG/5 ML CUP PO SCH ×2 (08:34→11:37)
[2017-02-15] MEDS: PANTOPRAZOLE 40 MG TABLET PO SCH (08:35)
[2017-02-15] MEDS: DICYCLOMINE 10 MG CAP PO SCH ×2 (08:36→12:46)
[2017-02-15] MEDS: ESCITALOPRAM 20 MG TAB PO SCH (08:36)
[2017-02-15] MEDS: NICOTINE 21MG/24HR PATCH TRANSDERM SCH (08:37)
[2017-02-15] MEDS: LOPERAMIDE 2 MG CAP PO SCH ×2 (08:37→12:45)
--- NOTE | 2017-02-15 11:33 | P.PN ---
Subjective Principal diagnosis: Abdominal pain 41-year-old male admitted with chronic abdominal pain diarrhea 4 months. Heavy EtOH in the past quit 4 months ago. Pancreatic enzymes elevated on admission suspect alcohol-induced pancreatitis contributing to most of his symptoms. CT scan abdomen and pelvis reported no evidence of abscess bowel obstruction or pneumoperitoneum. No pancreatic pseudocysts. Still reports abdominal pain. No bleeding. Afebrile. Requesting IV pain medications. Objective - Vital Signs Vital signs: Vital Signs Temp 96.5 F L 02/15/17 07:00 Pulse 58 L 02/15/17 07:00 Resp 12 02/15/17 07:00 BP 105/61 02/15/17 07:00 Pulse Ox 93 L 02/15/17 07:00 Intake & Output 02/14/17 02/15/17 02/15/17 18:59 06:59 18:59 Weight 72.575 kg Other: # Voids 1 2 # Emeses 1 - Exam General appearance: The patient is alert, oriented, in no acute distress. HET: Head is normocephalic and atraumatic. Pupils are equal and reactive. Oropharynx is clear without lesions. Neck: Supple without lymphadenopathy. Trachea midline. Heart: S1 S2. Regular rate and rhythm. Lungs: No crackles or wheezes are heard. Abdomen: Soft, diffuse mild tenderness mostly in the left side extending down to the left groin, nondistended with bowel sounds. No peritoneal signs. No palpable organomegaly or masses. Extremities: Normal skin color and turgor. No cyanosis, rash, ulceration, clubbing, or edema. Radial and pedal pulses are 2/4 bilaterally. Neurological: No focal deficits. Strength and sensation are grossly intact. - Labs CBC & Chem 7: 02/14/17 08:06 02/14/17 08:06 Assessment and Plan (1) Pancreatitis Narrative/Plan: Abdominal pain suspect alcohol-induced pancreatitis which could be contributing to his chronic pain over the last 4 months. Status: Acute (2) Abdominal pain Status: Acute (3) Hemorrhoids Narrative/Plan: Intermittent rectal bleeding most likely hemorrhoidal in nature possible diverticular status post colonoscopy March 2016 Status: Acute (4) H/O ETOH abuse Status: Acute (5) Cocaine abuse in remission Status: Acute Plan: 1. No further workup from a GI standpoint. Colonoscopy 1 year ago with findings of internal hemorrhoids and diverticular disease. Continue with alcohol abstinence. 2. Return to GI office in 1-2 weeks for reevaluation. 3. Symptomatic and supportive care. Assessment and plan of care discussed with Dr. Torres.
[2017-02-15] MEDS: MULTIVITAMINS, THERA 1 EACH TAB PO SCH (11:41)
--- NOTE | 2017-02-16 09:07 | DS ---
DATE OF ADMISSION: 02/13/2017 DATE OF DISCHARGE: 02/15/2017 FINAL DIAGNOSIS(ES): 1. Acute pancreatitis secondary to alcoholism. 2. Chronic marijuana use. 3. Hemorrhoids. 4. Chronic nicotine dependence. 5. Possible acute on chronic gastritis from alcoholism. HOSPITAL COURSE: This patient presented with diarrhea, abdominal pain. Doing much better by the time of discharge. CT scan of the abdomen and pelvis was unremarkable. Seen by Dr. Hayley Musa from Gastroenterology. Spoke to Lovely Sampson today. Patient okay to be discharged. Dr. Musa did see the patient last night. The patient tolerating some diet. Patient did follow with her in the office. Told him to keep away from alcohol. On exam: ABDOMEN: Soft. Minimal tenderness. The patient is afebrile. Normal white count. DISCHARGE MEDICATION: 1. Lexapro 20 mg a day. 2. Multivitamin 1 tablet p.o. daily. 3. Bentyl 10 mg p.o. q.i.d. 4. Nicotine 20 mg patch. Follow up with ( ) 02/19/[address] Hayley Musa 02/26/2017. Diet: Soft.
== END 2017-02-15 15:13 | disposition home or self-care (01) ==
LOC: EC 16:38 → 4MS4W 18:51
PROVIDERS: ADMIT Hospitalist; ATTEND Hospitalist
DX: K85.20 Alcohol induced acute pancreatitis without necrosis or infection (principal); F17.210 Nicotine dependence, cigarettes, uncomplicated; F10.10 Alcohol abuse, uncomplicated; F14.10 Cocaine abuse, uncomplicated; F12.90 Cannabis use, unspecified, uncomplicated; K64.9 Unspecified hemorrhoids; F41.9 Anxiety disorder, unspecified; F31.9 Bipolar disorder, unspecified; Z79.899 Other long term (current) drug therapy; Z86.14 Personal history of Methicillin resistant Staphylococcus aureus infection; K62.5 Hemorrhage of anus and rectum
CPT/HCPCS: 36415; 74000; 74177; 80053; 81003; 82150; 82272; 83690; 85025; 85610; 85730; 87324; 96361; 96374; 96375; 96376; 99285

== ENCOUNTER 2024-06-30 21:05 | Emergency (ER) | payer OTHER ==
[2024-06-30 21:25] VITALS: BP 100/60; PULSE 67; RESP 18; TEMP 97.5
--- NOTE | 2024-06-30 21:25 | ED ---
General Adult HPI - General Stated complaint: Syncope, ETOH Time Seen by Provider: 06/30/24 21:07 - History of Present Illness Initial comments: Patient is a 48-year-old man who has history of previous withdrawal seizures, brought by ambulance to have evaluation after he believes he had another withdrawal seizure. Patient states that he had been sober for a period of time and then went back to drinking a little over a month ago. He is drinking 2-3/5 of liquor per day. Patient states that he believes he had a seizure as he woke up on the floor. EMS was called and transported him here. Patient is denying injury. He denies headache, back, chest or abdomen pain. No extremity injuries. -: minutes(s) Severity scale (1-10): 0 Consistency: constant Improves with: none Worsens with: none Associated Symptoms: nausea/vomiting Treatments Prior to Arrival: none - Related Data Home Medications Medication Instructions Recorded Confirmed Escitalopram [Lexapro] 20 mg PO DAILY 02/13/17 07/04/24 Fexofenadine HCl [Jewels Allergy] 60 mg PO BID 07/02/24 07/04/24 Naproxen [Naprosyn] 500 mg PO BID 07/02/24 07/04/24 Propranolol [Inderal] 20 mg PO BID 07/02/24 07/04/24 buPROPion XL [Wellbutrin XL] 300 mg PO DAILY 07/02/24 07/04/24 cloNIDine HCL [Catapres] 0.1 - 0.2 mg PO BID PRN 07/02/24 07/04/24 Previous Rx's Medication Instructions Recorded Nicotine 21Mg/24Hr Patch [Habitrol] 1 patch TRANSDERM DAILY #14 patch 02/15/17 LORazepam [Ativan] 1 mg PO TID 2 Days #6 tab 06/30/24 Allergies Allergy/AdvReac Type Severity Reaction Status Date / Time No Known Allergies Allergy Verified 07/04/24 12:44 Review of Systems ROS Statement: Those systems with pertinent positive or pertinent negative responses have been documented in the HPI. ROS Other: All systems not noted in ROS Statement are negative. Constitutional: Denies: fever, chills, weakness Eyes: Denies: vision change Respiratory: Denies: cough, dyspnea Cardiovascular: Denies: chest pain, palpitations, edema Gastrointestinal: Reports: nausea. Denies: abdominal pain, vomiting, diarrhea, hematemesis, melena, hematochezia Genitourinary: Denies: dysuria, hematuria Musculoskeletal: Denies: back pain Skin: Denies: rash Neurological: Denies: headache, weakness, numbness, paresthesias Past Medical History Additional Past Medical History / Comment(s): HX OF INTERMITTENT BLOOD IN STOOL HAD COLONOSCOPY - DIVERTICULOSIS,HEMORRHOIDS, HX OF MONO 2016, PALPITATIONS. PT STATED FOR PAST 2 MONTHS HAVING DIARRHEA 6-12 TIMES A DAY AND MAYBE HAVE 1 GOOD DAY OUT OF WEEK WHERE HE DOES'NT(DID'NT HAVE ANY YESTERDAY), "30# WT LOSS OVER 2 MONTHS-APPETITE HAS'NT BEEN GOOD. History of Any Multi-Drug Resistant Organisms: MRSA Date of last positivie culture/infection: 2007 MDRO Source:: LEGS Past Surgical History: Tonsillectomy Additional Past Surgical History / Comment(s): COLONOSCOPY Past Anesthesia/Blood Transfusion Reactions: No Reported Reaction Past Psychological History: Anxiety, Bipolar, Depression Additional Psychological History / Comment(s): PT STATED HE HAS SOME DEPRESSION BUT HAS NO THOUGHTS OF WANTING TO HARM SELF. PT LIVES WITH GIRL FRIEND AND HAS A 4 MONTH OLD SON. 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 NO OUTSIDE SERVICES. NO MEDICAL EQUIPMENT. NO PETS. NO PAST SERVICE. DOES [employer] WORK. Past Alcohol Use History: Abuse, Daily, Heavy Additional Past Alcohol Use History / Comment(s): STATES RECOVERING ALCHOHOLIC HAS'NT DRANK IN 4 MONTHS.PAST CRACK COCAINE USE-"HAS'NT USED IN 3 YEARS". Past Drug Use History: Cocaine, Marijuana Additional Drug Use History / Comment(s): HX OF CRACK USE-LAST USED 3 YEARS AGO. DOES USE MARIJUANA-LAST USED 6--17 - Past Family History Mother Family Medical History: No Reported History Father Family Medical History: No Reported History General Exam General appearance: alert, in no apparent distress Head exam: Present: atraumatic, normocephalic Eye exam: Present: normal appearance, PERRL, EOMI. Absent: scleral icterus, conjunctival injection, nystagmus ENT exam: Present: mucous membranes dry Neck exam: Present: normal inspection. Absent: tenderness, meningismus, full ROM Respiratory exam: Present: normal lung sounds bilaterally. Absent: respiratory distress, wheezes, rales, rhonchi, stridor, accessory muscle use Cardiovascular Exam: Present: regular rate, normal rhythm, normal heart sounds. Absent: systolic murmur, diastolic murmur, rubs, gallop GI/Abdominal exam: Present: soft. Absent: distended, tenderness, guarding, rebound, rigid, mass Extremities exam: Present: normal inspection, normal capillary refill. Absent: pedal edema, calf tenderness Back exam: Present: normal inspection. Absent: vertebral tenderness Neurological exam: Present: alert, oriented X3, CN II-XII intact. Absent: motor sensory deficit Skin exam: Present: warm, dry, intact, normal color. Absent: rash Course Vital Signs 06/30/24 21:20 Temperature 97.5 F L Pulse Rate 67 Respiratory 18 Rate Blood Pressure 100/60 O2 Sat by Pulse 97 Oximetry Medical Decision Making - Medical Decision Making Was pt. sent in by a medical professional or institution ([facility], WALL WORKER, urgent care, hospital, or alf...) When possible be specific @ -[No] Did you speak to anyone other than the patient for history (EMS, parent, family, police, friend...)? What history was obtained from this source @ -[No] Did you review nursing and triage notes (agree or disagree)? Why? @ -[I reviewed and agree with nursing and triage notes] Were old charts reviewed (outside hosp., previous admission, EMS record, old EKG, old radiological studies, urgent care reports/EKG's, alf records)? Report findings @ -[No old charts were reviewed] Differential Diagnosis (chest pain, altered mental status, abdominal pain women, abdominal pain men, vaginal bleeding, weakness, fever, dyspnea, syncope, headache, dizziness, GI bleed, back pain, seizure, CVA, palpatations, mental health, musculoskeletal)? @ -[Differential Mental Health Depression, anxiety, bipolar, psychosis, schizophrenia, borderline personality, situational depression, adjustment disorder, behavioral disorder, brain tumor, malingering, substance abuse, encephalopathy, medication reaction, dementia, hypothyroidism, degenerative neurologic disorder, lupus.... This is not meant to be all-inclusive list EKG interpreted by me (3pts min.). @ -[As above] X-rays interpreted by me (1pt min.). @ -[None done] CT interpreted by me (1pt min.). @ -[None done] U/S interpreted by me (1pt. min.). @ -[None done] What testing was considered but not performed or refused? (CT, X-rays, U/S, labs)? Why? @ -[None] What meds were considered but not given or refused? Why? @ -[None] Did you discuss the management of the patient with other professionals (lena arevalo i.e. , PA, WALL WORKER, lab, RT, psych nurse, clinical social worker, auto clutch rebuilder, teacher, multisensor intelligence officer, counter caser)? Give summary @ -[No] Was smoking cessation discussed for >3mins.? @ -[No] Was critical care preformed (if so, how long)? @ -[No] Were there social determinants of health that impacted care today? How? (Homelessness, low income, unemployed, alcoholism, drug addiction, transportation, low edu. Level, literacy, decrease access to med. care, group home, rehab)? @ -[No] Was there de-escalation of care discussed even if they declined (Discuss DNR or withdrawal of care, Hospice)? DNR status @ -[No] What co-morbidities impacted this encounter? (DM, HTN, Smoking, COPD, CAD, Cancer, CVA, ARF, Chemo, Hep., AIDS, mental health diagnosis, sleep apnea, morbid obesity)? @ -[None] Was patient admitted / discharged? Hospital course, mention meds given and route, prescriptions, significant lab abnormalities, going to OR and other pertinent info. @ -[Patient is 48-year-old man with history of previous severe alcohol withdrawal. Today the patient is not manifesting any signs of withdrawal. His vital signs are normal. He is not tremulous. The patient at this point appears stable to have outpatient treatment. Discussed with his living facility and they state that they are going to take him to [place] in the morning to have further evaluation and treatment. Discussed with patient the treatment plan and also return parameters should any problems develop Undiagnosed new problem with uncertain prognosis? @ -[No] Drug Therapy requiring intensive monitoring for toxicity (Heparin, Nitro, Insulin, Cardizem)? @ -[No] Were any procedures done? @ -[No] Diagnosis/symptom? @ -[Alcohol withdrawal Acute, or Chronic, or Acute on Chronic? @ -[Acute Uncomplicated (without systemic symptoms) or Complicated (systemic symptoms)? @ -[Uncomplicated Side effects of treatment? @ -[No] Exacerbation, Progression, or Severe Exacerbation? @ -[No] Poses a threat to life or bodily function? How? (Chest pain, [place], [place], pneumonia, PE, COPD, DKA, ARF, appy, cholecystitis, CVA, Diverticulitis, Homicidal, Suicidal, threat to staff... and all critical care pts) @ -[No] - Lab Data Result diagrams: 06/30/24 21:50 06/30/24 21:50 Lab Results 06/30/24 06/30/24 Range/Units 21:50 21:50 WBC 6.5 (3.8-10.6) k/uL RBC 5.34 (4.30-5.90) m/uL Hgb 16.1 (13.0-17.5) gm/dL Hct 48.2 (39.0-53.0) % MCV 90.2 (80.0-100.0) fL MCH 30.2 (25.0-35.0) pg MCHC 33.5 (31.0-37.0) g/dL RDW 14.6 (11.5-15.5) % Plt Count 221 (150-450) k/uL MPV 7.2 Neutrophils % 52 % Lymphocytes % 31 % Monocytes % 10 % Eosinophils % 4 % Basophils % 1 % Neutrophils # 3.4 (1.3-7.7) k/uL Lymphocytes # 2.1 (1.0-4.8) k/uL Monocytes # 0.6 (0-1.0) k/uL Eosinophils # 0.3 (0-0.7) k/uL Basophils # 0.0 (0-0.2) k/uL Sodium 136 L (137-145) mmol/L Potassium 4.9 (3.5-5.1) mmol/L Chloride 106 (98-107) mmol/L Carbon Dioxide 32 H (22-30) mmol/L Anion Gap -2 mmol/L BUN 10 (9-20) mg/dL Creatinine 1.14 (0.66-1.25) mg/dL Est GFR (CKD-EPI)AfAm 89 (>60 ml/min/1.73 sqM) Est GFR (CKD-EPI)NonAf 77 (>60 ml/min/1.73 sqM) Glucose 90 (74-99) mg/dL Calcium 8.8 (8.4-10.2) mg/dL Magnesium 2.0 (1.6-2.3) mg/dL Total Bilirubin 0.9 (0.2-1.3) mg/dL AST 52 (17-59) U/L ALT 36 (4-49) U/L Alkaline Phosphatase 45 (38-126) U/L Total Protein 5.5 L (6.3-8.2) g/dL Albumin 3.3 L (3.5-5.0) g/dL Serum Alcohol <10 mg/dL Disposition Clinical Impression: Alcohol withdrawal syndrome Disposition: HOME SELF-CARE Condition: Good Instructions (If sedation given, give patient instructions): Alcohol Withdrawal (ED) Prescriptions: LORazepam [Ativan] 1 mg PO TID 2 Days #6 tab Is patient prescribed a controlled substance at d/c from ED?: No Referrals: Chris Gauthier MD [Primary Care Provider] - 1-2 days
[2024-06-30 21:58] LABS: Basophils % (A) 1 %; Eosinophils # (A) 0.3 k/uL (0-0.7); Eosinophils % (A) 4 %; HCT 48.2 % (39.0-53.0); HGB 16.1 gm/dL (13.0-17.5); Lymphocytes # (A) 2.1 k/uL (1.0-4.8); Lymphocytes % (A) 31 %; MCH 30.2 pg (25.0-35.0); MCHC 33.5 g/dL (31.0-37.0); MCV 90.2 fL (80.0-100.0); Mean Platelet Volume 7.2; Monocytes # (A) 0.6 k/uL (0-1.0); Monocytes % (A) 10 %; Neutrophils # (A) 3.4 k/uL (1.3-7.7); Neutrophils % (A) 52 %; Platelet Count 221 k/uL (150-450); RBC 5.34 m/uL (4.30-5.90); RDW 14.6 % (11.5-15.5); WBC 6.5 k/uL (3.8-10.6)
[2024-06-30] MEDS: SODIUM CHLORIDE 0.9% 1,000 ML IV STA (21:58)
[2024-06-30 22:08] LABS: ALT 36 U/L (4-49); African American GFR (CKD) 89 (>60 ml/min/1.73 sqM); Alcohol <10 mg/dL; Anion Gap -2 mmol/L; Blood Urea Nitrogen 10 mg/dL (9-20); Calcium 8.8 mg/dL (8.4-10.2); Carbon Dioxide 32 mmol/L (22-30); Chloride 106 mmol/L (98-107); Glucose 90 mg/dL (74-99); Non-African American GFR(CKD) 77 (>60 ml/min/1.73 sqM); Sodium 136 mmol/L (137-145); Total Bilirubin 0.9 mg/dL (0.2-1.3)
[2024-06-30 22:14] LABS: AST 52 U/L (17-59); Albumin 3.3 g/dL (3.5-5.0); Alkaline Phosphatase 45 U/L (38-126); Potassium 4.9 mmol/L (3.5-5.1); Total Protein 5.5 g/dL (6.3-8.2)
[2024-06-30] MEDS: chlordiazePOXIDE 25 MG CAP PO STA (22:54)
== END 2024-06-30 23:20 | disposition home or self-care (01) ==
LOC: EC 21:05
DX: F10.239 Alcohol dependence with withdrawal, unspecified (principal); Y90.1 Blood alcohol level of 20-39 mg/100 ml
CPT/HCPCS: 99284 ×2; 96360 ×2; 82075; 36415; 80053; 83735; 85025; G0480; 80320

== ENCOUNTER 2024-07-02 00:24 | Observation (INO) | payer OTHER ==
[2024-07-02 00:34] VITALS: TEMP 98.2
[2024-07-02] MEDS: SODIUM CHLORIDE 0.9% 1,000 ML IV ONE (01:36)
[2024-07-02] MEDS: LORazepam 2 MG/ML INJ IV STA (01:37)
[2024-07-02 01:53] LABS: Basophils # (A) 0.1 k/uL (0-0.2); Basophils % (A) 1 %; Eosinophils # (A) 0.1 k/uL (0-0.7); Eosinophils % (A) 2 %; HCT 48.7 % (39.0-53.0); HGB 16.5 gm/dL (13.0-17.5); Lymphocytes # (A) 2.4 k/uL (1.0-4.8); Lymphocytes % (A) 25 %; MCH 30.1 pg (25.0-35.0); MCHC 33.9 g/dL (31.0-37.0); MCV 88.8 fL (80.0-100.0); Mean Platelet Volume 7.5; Monocytes % (A) 10 %; Neutrophils % (A) 60 %; Platelet Count 290 k/uL (150-450); RBC 5.49 m/uL (4.30-5.90); RDW 14.4 % (11.5-15.5); WBC 9.9 k/uL (3.8-10.6)
[2024-07-02 02:11] LABS: ALT 41 U/L (4-49); AST 53 U/L (17-59); African American GFR (CKD) 81 (>60 ml/min/1.73 sqM); Albumin 3.9 g/dL (3.5-5.0); Alcohol 65 mg/dL; Alkaline Phosphatase 69 U/L (38-126); Anion Gap 4 mmol/L; Blood Urea Nitrogen 9 mg/dL (9-20); Calcium 9.1 mg/dL (8.4-10.2); Carbon Dioxide 30 mmol/L (22-30); Chloride 106 mmol/L (98-107); Glucose 79 mg/dL (74-99); Non-African American GFR(CKD) 70 (>60 ml/min/1.73 sqM); Potassium 5.3 mmol/L (3.5-5.1); Sodium 140 mmol/L (137-145); Total Bilirubin 0.5 mg/dL (0.2-1.3); Total Protein 6.1 g/dL (6.3-8.2)
[2024-07-02] MEDS ORDERED: LORazepam 2 MG/ML INJ IV PRN (03:07)
[2024-07-02] MEDS: LORazepam 2 MG/ML INJ IV PRN ×2 (03:21→06:15)
[2024-07-02] MEDS ORDERED: ONDANSETRON 4 MG/2 ML VIAL IVP PRN (04:26)
[2024-07-02] MEDS ORDERED: NALOXONE 0.4 MG/ML 1 ML VIAL IV PRN (04:26)
[2024-07-02] MEDS: SODIUM CHLORIDE 0.9% 1,000 ML IV SCH (05:19)
--- NOTE | 2024-07-02 06:38 | ED ---
Alcohol HPI - General Chief Complaint: Alcohol Stated Complaint: ETOH Time Seen by Provider: 07/02/24 00:34 Source: EMS Mode of arrival: EMS Limitations: no limitations - History of Present Illness Initial Comments: This patient is a 48-year-old man who presents with complaint that he believes he is withdrawing from alcohol. Patient states that he feels anxious and shaky. Patient has history of previous DTs and seizures related to stopping drinking. He states that he had been sober for some time and then a bit over a month ago started drinking again. He states that he sometimes drinks 2-3/5 of alcohol per day. He did have a pint of alcohol yesterday. 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) Previous Visits for Alcohol Intoxication?: Yes Recent Trauma: No Associated Symptoms: tremors Chronic Alcohol Use: Yes - Related Data Home Medications Medication Instructions Recorded Confirmed Escitalopram [Lexapro] 20 mg PO DAILY 02/13/17 07/04/24 Fexofenadine HCl [Jewels Allergy] 60 mg PO BID 07/02/24 07/04/24 Naproxen [Naprosyn] 500 mg PO BID 07/02/24 07/04/24 Propranolol [Inderal] 20 mg PO BID 07/02/24 07/04/24 buPROPion XL [Wellbutrin XL] 300 mg PO DAILY 07/02/24 07/04/24 cloNIDine HCL [Catapres] 0.1 - 0.2 mg PO BID PRN 07/02/24 07/04/24 Previous Rx's Medication Instructions Recorded Nicotine 21Mg/24Hr Patch [Habitrol] 1 patch TRANSDERM DAILY #14 patch 02/15/17 LORazepam [Ativan] 1 mg PO TID 2 Days #6 tab 06/30/24 Allergies Allergy/AdvReac Type Severity Reaction Status Date / Time No Known Allergies Allergy Verified 07/04/24 12:44 Review of Systems ROS Statement: Those systems with pertinent positive or pertinent negative responses have been documented in the HPI. ROS Other: All systems not noted in ROS Statement are negative. Constitutional: Denies: fever, chills, weakness Eyes: Denies: vision change Respiratory: Denies: cough, dyspnea, wheezes Cardiovascular: Reports: palpitations. Denies: chest pain, orthopnea, edema, syncope Gastrointestinal: Reports: nausea. Denies: abdominal pain, vomiting, diarrhea, melena, hematochezia Genitourinary: Denies: dysuria, hematuria Musculoskeletal: Denies: back pain Skin: Denies: rash Neurological: Denies: headache, weakness, numbness Psychiatric: Denies: homicidal thoughts, suicidal thoughts Past Medical History Additional Past Medical History / Comment(s): HX OF INTERMITTENT BLOOD IN STOOL HAD COLONOSCOPY - DIVERTICULOSIS,HEMORRHOIDS, HX OF MONO 2016, PALPITATIONS. PT STATED FOR PAST 2 MONTHS HAVING DIARRHEA 6-12 TIMES A DAY AND MAYBE HAVE 1 GOOD DAY OUT OF WEEK WHERE HE DOES'NT(DID'NT HAVE ANY YESTERDAY), "30# WT LOSS OVER 2 MONTHS-APPETITE HAS'NT BEEN GOOD. History of Any Multi-Drug Resistant Organisms: MRSA Date of last positivie culture/infection: 2007 MDRO Source:: LEGS Past Surgical History: Tonsillectomy Additional Past Surgical History / Comment(s): COLONOSCOPY Past Anesthesia/Blood Transfusion Reactions: No Reported Reaction Past Psychological History: Anxiety, Bipolar, Depression Past Alcohol Use History: Abuse, Daily, Heavy Past Drug Use History: Cocaine, Marijuana - Past Family History Mother Family Medical History: No Reported History Father Family Medical History: No Reported History General Exam Limitations: no limitations General appearance: alert, in no apparent distress, anxious Head exam: Present: atraumatic, normocephalic Eye exam: Present: normal appearance. Absent: scleral icterus, conjunctival injection ENT exam: Present: mucous membranes dry Neck exam: Present: normal inspection, full ROM Respiratory exam: Present: normal lung sounds bilaterally. Absent: respiratory distress, wheezes, rales, rhonchi, stridor, accessory muscle use Cardiovascular Exam: Present: regular rate, normal rhythm, normal heart sounds. Absent: systolic murmur, diastolic murmur, rubs, gallop GI/Abdominal exam: Present: soft. Absent: distended, tenderness, guarding, rebound, rigid, mass, pulsatile mass, hernia Extremities exam: Present: normal inspection, normal capillary refill. Absent: pedal edema, calf tenderness Back exam: Present: normal inspection Neurological exam: Present: alert, CN II-XII intact, other (Patient is having moderate tremor). Absent: motor sensory deficit Psychiatric exam: Present: anxious. Absent: agitated, homicidal ideation, suicidal ideation Skin exam: Present: warm, dry, intact, normal color. Absent: rash Course Vital Signs 07/02/24 07/02/24 07/02/24 00:26 01:40 02:00 Temperature 98.2 F Pulse Rate 97 100 89 Respiratory 14 19 18 Rate Blood Pressure 145/88 166/87 125/65 O2 Sat by Pulse 98 98 99 Oximetry 07/02/24 07/02/24 07/02/24 03:10 03:21 05:20 Temperature Pulse Rate 97 96 98 Respiratory 19 17 17 Rate Blood Pressure 117/79 138/85 142/84 O2 Sat by Pulse 99 97 97 Oximetry 07/02/24 07/02/24 07/02/24 06:24 07:49 09:00 Temperature Pulse Rate 91 90 107 H Respiratory 15 20 16 Rate Blood Pressure 127/68 130/90 126/74 O2 Sat by Pulse 97 98 98 Oximetry 07/02/24 07/02/24 07/02/24 10:52 12:00 13:47 Temperature Pulse Rate 110 H 90 84 Respiratory 20 20 14 Rate Blood Pressure 115/62 130/70 111/71 O2 Sat by Pulse 98 98 96 Oximetry 07/02/24 07/02/24 07/02/24 14:00 15:38 16:54 Temperature Pulse Rate 74 81 117 H Respiratory 20 20 20 Rate Blood Pressure 105/67 117/86 183/50 O2 Sat by Pulse 98 98 98 Oximetry 07/02/24 18:00 Temperature Pulse Rate 100 Respiratory 20 Rate Blood Pressure 140/78 O2 Sat by Pulse 98 Oximetry Medical Decision Making - Medical Decision Making Was pt. sent in by a medical professional or institution (, PA, TOP FORMER, urgent care, hospital, or fci...) When possible be specific @ -[No] Did you speak to anyone other than the patient for history (EMS, parent, family, police, friend...)? What history was obtained from this source @ -[No] Did you review nursing and triage notes (agree or disagree)? Why? @ -[I reviewed and agree with nursing and triage notes] Were old charts reviewed (outside hosp., previous admission, EMS record, old EKG, old radiological studies, urgent care reports/EKG's, fci records)? Report findings @ -[No old charts were reviewed] Differential Diagnosis (chest pain, altered mental status, abdominal pain women, abdominal pain men, vaginal bleeding, weakness, fever, dyspnea, syncope, headache, dizziness, GI bleed, back pain, seizure, CVA, palpatations, mental health, musculoskeletal)? @ -[Differential Mental Health Depression, anxiety, bipolar, psychosis, schizophrenia, borderline personality, situational depression, adjustment disorder, behavioral disorder, brain tumor, malingering, substance abuse, encephalopathy, medication reaction, dementia, hypothyroidism, degenerative neurologic disorder, lupus.... This is not meant to be all-inclusive list EKG interpreted by me (3pts min.). @ -[As above] X-rays interpreted by me (1pt min.). @ -[None done] CT interpreted by me (1pt min.). @ -[None done] U/S interpreted by me (1pt. min.). @ -[None done] What testing was considered but not performed or refused? (CT, X-rays, U/S, labs)? Why? @ -[None] What meds were considered but not given or refused? Why? @ -[None] Did you discuss the management of the patient with other professionals (pr ofessionals i.e. , PA, TOP FORMER, lab, RT, psych nurse, health social work professor, solid waste manager, teacher, neighborhood conservation officer, case preparer and liner)? Give summary @ -[Case discussed with admitting physician and treatment recommendations are incorporated Was smoking cessation discussed for >3mins.? @ -[No] Was critical care preformed (if so, how long)? @ -[No] Were there social determinants of health that impacted care today? How? (Homelessness, low income, unemployed, alcoholism, drug addiction, transportation, low edu. Level, literacy, decrease access to med. care, residential, rehab)? @ -[Alcoholism Was there de-escalation of care discussed even if they declined (Discuss DNR or withdrawal of care, Hospice)? DNR status @ -[No] What co-morbidities impacted this encounter? (DM, HTN, Smoking, COPD, CAD, Cancer, CVA, ARF, Chemo, Hep., AIDS, mental health diagnosis, sleep apnea, morbid obesity)? @ -[Alcohol dependence Was patient admitted / discharged? Hospital course, mention meds given and route, prescriptions, significant lab abnormalities, going to OR and other pertinent info. @ -[Patient is 48-year-old man with history of previous severe alcohol withdrawal who presents with complaint that he is feeling like he is developing withdrawal. The patient does have hypertension and tremulousness. He will be admitted for course of benzodiazepine therapy Undiagnosed new problem with uncertain prognosis? @ -[No] Drug Therapy requiring intensive monitoring for toxicity (Heparin, Nitro, Insulin, Cardizem)? @ -[No] Were any procedures done? @ -[No] Diagnosis/symptom? @ -[Acute alcohol withdrawal Acute, or Chronic, or Acute on Chronic? @ -[Acute Uncomplicated (without systemic symptoms) or Complicated (systemic symptoms)? @ -[Uncomplicated Side effects of treatment? @ -[No] Exacerbation, Progression, or Severe Exacerbation? @ -[No] Poses a threat to life or bodily function? How? (Chest pain, [place], [place], pneumonia, PE, COPD, DKA, ARF, appy, cholecystitis, CVA, Diverticulitis, Homicidal, Suicidal, threat to staff... and all critical care pts) @ -[Yes there is significant risk of morbidity and mortality associated with delirium tremens - Lab Data Result diagrams: 07/02/24 01:30 07/02/24 01:30 Lab Results 07/02/24 07/02/24 Range/Units 01:30 01:30 WBC 9.9 (3.8-10.6) k/uL RBC 5.49 (4.30-5.90) m/uL Hgb 16.5 (13.0-17.5) gm/dL Hct 48.7 (39.0-53.0) % MCV 88.8 (80.0-100.0) fL MCH 30.1 (25.0-35.0) pg MCHC 33.9 (31.0-37.0) g/dL RDW 14.4 (11.5-15.5) % Plt Count 290 (150-450) k/uL MPV 7.5 Neutrophils % 60 % Lymphocytes % 25 % Monocytes % 10 % Eosinophils % 2 % Basophils % 1 % Neutrophils # 6.0 (1.3-7.7) k/uL Lymphocytes # 2.4 (1.0-4.8) k/uL Monocytes # 1.0 (0-1.0) k/uL Eosinophils # 0.1 (0-0.7) k/uL Basophils # 0.1 (0-0.2) k/uL Sodium 140 (137-145) mmol/L Potassium 5.3 H (3.5-5.1) mmol/L Chloride 106 (98-107) mmol/L Carbon Dioxide 30 (22-30) mmol/L Anion Gap 4 mmol/L BUN 9 (9-20) mg/dL Creatinine 1.23 (0.66-1.25) mg/dL Est GFR (CKD-EPI)AfAm 81 (>60 ml/min/1.73 sqM) Est GFR (CKD-EPI)NonAf 70 (>60 ml/min/1.73 sqM) Glucose 79 (74-99) mg/dL Calcium 9.1 (8.4-10.2) mg/dL Total Bilirubin 0.5 (0.2-1.3) mg/dL AST 53 (17-59) U/L ALT 41 (4-49) U/L Alkaline Phosphatase 69 (38-126) U/L Total Protein 6.1 L (6.3-8.2) g/dL Albumin 3.9 (3.5-5.0) g/dL Serum Alcohol 65 mg/dL Disposition Clinical Impression: Alcohol withdrawal syndrome Disposition: ADMITTED IP TO THIS HOSP Condition: Fair Is patient prescribed a controlled substance at d/c from ED?: No
[2024-07-02] MEDS: FAMOTIDINE 20 MG TAB PO SCH (09:10)
[2024-07-02 14:51] VITALS: RESP 20
[2024-07-02 18:52] VITALS: BP 140/78; PULSE 100
[2024-07-03] MEDS ORDERED: THIAMINE 100 MG TAB PO SCH (09:00)
--- NOTE | 2024-07-05 22:44 | HP ---
HISTORY AND PHYSICAL CHIEF COMPLAINT: Acute alcohol intoxication and DTs. HISTORY OF PRESENT ILLNESS: This is another admission for this 48-year-old white male alcoholic. He just left [facility] where he was admitted for alcoholism and DTs and signed out. REVIEW OF SYSTEMS: He has had alcohol withdrawal seizures, but he has had none at this time that he is aware of. Review of systems is not obtainable. Past medical history, family history, and personal and social histories are not obtainable. PHYSICAL EXAMINATION: HEAD, EARS, EYES, NOSE, AND MOUTH: Normal. CHEST: Clear. CARDIAC: Normal. ABDOMEN: Protuberant. There are no masses or visceromegaly. EXTREMITIES: Normal. He is in DTs. DIAGNOSES: 1. Acute alcohol intoxication. 2. Chronic alcoholism. 3. DTs. PLAN: 1. Bed rest. 2. IV fluids. 3. CIWA protocol. FROILAN / ARETHA: [id number] /
--- NOTE | 2024-07-05 23:35 | DS ---
DISCHARGE SUMMARY CHIEF COMPLAINT: Acute alcohol intoxication and DTs. HISTORY OF PRESENT ILLNESS AND PHYSICAL EXAMINATION: Details of this man's history and physical can be found in the initial workup. LABORATORY STUDIES: While he is in the hospital, he had laboratory studies, details of which can be found in the laboratory section of his chart. COURSE IN THE HOSPITAL: After admission, he was placed on bedrest and started on IV fluids and CIWA protocol and he signed himself out against medical advice. FINAL DIAGNOSES: 1. Acute alcohol intoxication. 2. Delirium tremens. 3. Chronic alcoholism. OPERATIONS: None. CONSULTATION: None. MMODL / IJN: [id number] /
== END 2024-07-02 19:27 | disposition left against medical advice (07) ==
LOC: EC 00:24 → 4SSUR 04:28
PROVIDERS: ADMIT Family Medicine; ATTEND Family Medicine
DX: F10.229 Alcohol dependence with intoxication, unspecified (principal); F10.231 Alcohol dependence with withdrawal delirium; F31.9 Bipolar disorder, unspecified; F41.9 Anxiety disorder, unspecified; Z86.14 Personal history of Methicillin resistant Staphylococcus aureus infection; Z79.899 Other long term (current) drug therapy; Z53.29 Procedure and treatment not carried out because of patient's decision for other reasons
CPT/HCPCS: 96376; 96361; 96374; 99285; 36415; 80053; 85025; G0378; G0480; J2060; 80320

== ENCOUNTER 2024-07-03 23:55 | Inpatient (IN) | payer MEDICAID, OTHER ==
--- NOTE | 2024-07-04 00:12 | ED ---
Psych HPI - General Source: patient, EMS, RN notes reviewed Mode of arrival: EMS <Fawn Bah - Last Filed: 07/04/24 03:42> <Jayjay Lopes - Last Filed: 07/04/24 12:04> - General Chief Complaint: Psychiatric Symptoms Stated Complaint: LE Petition, Mental health Time Seen by Provider: 07/04/24 00:10 - History of Present Illness Initial Comments: This is a 48-year-old male with a history of alcohol abuse disorder and drug abuse presenting to the emergency department via EMS for chief complaint of suicidal ideation. Patient has been petitioned by police officials. He reports that prior to arrival he attempted to commit suicide by stepping into traffic however he stepped back onto the sidewalk and called 911. Patient states that he relapsed again today drinking a pint and 1/5 of vodka and using crack earlier. Patient states that he has gone through alcohol withdrawal multiple times in the past. Currently states that he feels mildly nauseous that he has not had a real meal in over 2 days. Patient is interested in going to rehab. (Fawn Bah) - Related Data Home Medications Medication Instructions Recorded Confirmed Escitalopram [Lexapro] 20 mg PO DAILY 02/13/17 07/02/24 Fexofenadine HCl [Jewels Allergy] 60 mg PO BID 07/02/24 07/02/24 Naproxen [Naprosyn] 500 mg PO BID 07/02/24 07/02/24 Propranolol [Inderal] 20 mg PO BID 07/02/24 07/02/24 buPROPion XL [Wellbutrin XL] 300 mg PO DAILY 07/02/24 07/02/24 cloNIDine HCL [Catapres] 0.1 - 0.2 mg PO BID PRN 07/02/24 07/02/24 Previous Rx's Medication Instructions Recorded Nicotine 21Mg/24Hr Patch [Habitrol] 1 patch TRANSDERM DAILY #14 patch 02/15/17 LORazepam [Ativan] 1 mg PO TID 2 Days #6 tab 06/30/24 Allergies Allergy/AdvReac Type Severity Reaction Status Date / Time No Known Allergies Allergy Verified 07/04/24 00:09 Review of Systems ROS Other: All systems not noted in ROS Statement are negative. <Stieler,Fawn - Last Filed: 07/04/24 03:42> ROS Other: All systems not noted in ROS Statement are negative. <MosesJayjay D - Last Filed: 07/04/24 12:04> ROS Statement: Those systems with pertinent positive or pertinent negative responses have been documented in the HPI. Past Medical History Additional Past Medical History / Comment(s): HX OF INTERMITTENT BLOOD IN STOOL HAD COLONOSCOPY - DIVERTICULOSIS,HEMORRHOIDS, HX OF MONO 2016, PALPITATIONS. PT STATED FOR PAST 2 MONTHS HAVING DIARRHEA 6-12 TIMES A DAY AND MAYBE HAVE 1 GOOD DAY OUT OF WEEK WHERE HE DOES'NT(DID'NT HAVE ANY YESTERDAY), "30# WT LOSS OVER 2 MONTHS-APPETITE HAS'NT BEEN GOOD. History of Any Multi-Drug Resistant Organisms: MRSA Date of last positivie culture/infection: 2007 MDRO Source:: LEGS Past Surgical History: Tonsillectomy Additional Past Surgical History / Comment(s): COLONOSCOPY Past Anesthesia/Blood Transfusion Reactions: No Reported Reaction Past Psychological History: Anxiety, Bipolar, Depression Smoking Status: Vaper Past Alcohol Use History: Abuse, Daily, Heavy Past Drug Use History: Cocaine, Marijuana - Past Family History Mother Family Medical History: No Reported History Father Family Medical History: No Reported History <Fawn Bah - Last Filed: 07/04/24 03:42> General Exam Limitations: no limitations Eye exam: Present: normal appearance, PERRL, EOMI. Absent: scleral icterus, conjunctival injection, periorbital swelling ENT exam: Present: normal exam, mucous membranes moist Neck exam: Present: normal inspection. Absent: tenderness, meningismus, lymphadenopathy Respiratory exam: Present: normal lung sounds bilaterally. Absent: respiratory distress, wheezes, rales, rhonchi, stridor Cardiovascular Exam: Present: regular rate, normal rhythm, normal heart sounds. Absent: systolic murmur, diastolic murmur, rubs, gallop, clicks GI/Abdominal exam: Present: soft, normal bowel sounds. Absent: distended, tenderness, guarding, rebound, rigid Extremities exam: Present: normal inspection, full ROM, normal capillary refill. Absent: tenderness, pedal edema, joint swelling, calf tenderness Psychiatric exam: Present: depressed, flat affect, suicidal ideation <Fawn Bah - Last Filed: 11/01/24 03:42> Course Vital Signs 07/04/24 07/04/24 07/04/24 00:02 02:06 06:31 Temperature 98.2 F 98.8 F Pulse Rate 97 111 H 108 H Respiratory 16 20 18 Rate Blood Pressure 113/70 120/76 130/80 O2 Sat by Pulse 100 98 Oximetry 07/04/24 08:35 Temperature Pulse Rate 99 Respiratory 18 Rate Blood Pressure 124/79 O2 Sat by Pulse 97 Oximetry Medical Decision Making - Lab Data Result diagrams: 07/04/24 01:20 07/04/24 01:20 <Fawn Bah - Last Filed: 07/04/24 03:42> - Lab Data Result diagrams: 07/04/24 01:20 07/04/24 01:20 <Jayjay Lopes - Last Filed: 07/04/24 12:04> - Medical Decision Making Was pt. sent in by a medical professional or institution (, PA, SIGN BOARD ERECTOR, urgent care, hospital, or penitentiary...) When possible be specific @ -[No] Did you speak to anyone other than the patient for history (EMS, parent, family, police, friend...)? What history was obtained from this source @ -[No] Did you review nursing and triage notes (agree or disagree)? Why? @ -[I reviewed and agree with nursing and triage notes] Were old charts reviewed (outside hosp., previous admission, EMS record, old EKG, old radiological studies, urgent care reports/EKG's, penitentiary records)? Report findings @ -[No old charts were reviewed] Differential Diagnosis (chest pain, altered mental status, abdominal pain women, abdominal pain men, vaginal bleeding, weakness, fever, dyspnea, syncope, headache, dizziness, GI bleed, back pain, seizure, CVA, palpatations, mental health, musculoskeletal)? @ -Differential Mental Health Depression, anxiety, bipolar, psychosis, schizophrenia, borderline personality, situational depression, adjustment disorder, behavioral disorder, brain tumor, malingering, substance abuse, encephalopathy, medication reaction, dementia, hypothyroidism, degenerative neurologic disorder, lupus.... This is not meant to be all-inclusive list EKG interpreted by me (3pts min.). @ -none X-rays interpreted by me (1pt min.). @ -[None done] CT interpreted by me (1pt min.). @ -[None done] U/S interpreted by me (1pt. min.). @ -[None done] What testing was considered but not performed or refused? (CT, X-rays, U/S, la bs)? Why? @ -[None] What meds were considered but not given or refused? Why? @ -[None] Did you discuss the management of the patient with other professionals (professionals i.e. , PA, SIGN BOARD ERECTOR, lab, RT, psych nurse, aids social worker, asbestos microscopist, teacher, professional security officer, senior case manager)? Give summary @ -[No] Was smoking cessation discussed for >3mins.? @ -[No] Was critical care preformed (if so, how long)? @ -[No] Were there social determinants of health that impacted care today? How? (Homelessness, low income, unemployed, alcoholism, drug addiction, transportation, low edu. Level, literacy, decrease access to med. care, usp, rehab)? @ -[No] Was there de-escalation of care discussed even if they declined (Discuss DNR or withdrawal of care, Hospice)? DNR status @ -[No] What co-morbidities impacted this encounter? (DM, HTN, Smoking, COPD, CAD, Cancer, CVA, ARF, Chemo, Hep., AIDS, mental health diagnosis, sleep apnea, morbid obesity)? @ -[None] Was patient admitted / discharged? Hospital course, mention meds given and route, prescriptions, significant lab abnormalities, going to OR and other pertinent info. @ -48-year-old male with suicidal ideation. On my evaluation the patient he is noted to be mildly depressed with a flattened affect. Vitals are stable. Comprehensive physical examination with no acute findings. CBC, CMP unremarkable, patient serum alcohol level of 54, negative for COVID, flu, RSV. Patient is medically cleared for psychiatric evaluation. Undiagnosed new problem with uncertain prognosis? @ -[No] Drug Therapy requiring intensive monitoring for toxicity (Heparin, Nitro, Insulin, Cardizem)? @ -[No] Were any procedures done? @ -[No] Diagnosis/symptom? @ -[default] Acute, or Chronic, or Acute on Chronic? @ -[default] Uncomplicated (without systemic symptoms) or Complicated (systemic symptoms)? @ -[default] Side effects of treatment? @ -[No] Exacerbation, Progression, or Severe Exacerbation? @ -[No] Poses a threat to life or bodily function? How? (Chest pain, USA, CT, pneumonia, PE, COPD, DKA, ARF, appy, cholecystitis, CVA, Diverticulitis, Homicidal, Suicidal, threat to staff... and all critical care pts) @ -[No] (Fawn Bah) I was notified by EPS nurse that patient will voluntarily signed to inpatient psych. (Jayjay Lopes) - Lab Data Lab Results 07/04/24 07/04/24 07/04/24 Range/Units 01:00 01:20 01:20 WBC 9.4 (3.8-10.6) k/uL RBC 5.56 (4.30-5.90) m/uL Hgb 16.3 (13.0-17.5) gm/dL Hct 49.4 (39.0-53.0) % MCV 88.9 (80.0-100.0) fL MCH 29.3 (25.0-35.0) pg MCHC 33.0 (31.0-37.0) g/dL RDW 14.5 (11.5-15.5) % Plt Count 281 (150-450) k/uL MPV 7.4 Neutrophils % 56 % Lymphocytes % 26 % Monocytes % 11 % Eosinophils % 4 % Basophils % 0 % Neutrophils # 5.3 (1.3-7.7) k/uL Lymphocytes # 2.5 (1.0-4.8) k/uL Monocytes # 1.0 (0-1.0) k/uL Eosinophils # 0.4 (0-0.7) k/uL Basophils # 0.0 (0-0.2) k/uL Sodium 140 (137-145) mmol/L Potassium 3.8 (3.5-5.1) mmol/L Chloride 106 (98-107) mmol/L Carbon Dioxide 26 (22-30) mmol/L Anion Gap 8 mmol/L BUN 9 (9-20) mg/dL Creatinine 1.20 (0.66-1.25) mg/dL Est GFR (CKD-EPI)AfAm 84 (>60 ml/min/1.73 sqM) Est GFR (CKD-EPI)NonAf 72 (>60 ml/min/1.73 sqM) Glucose 98 (74-99) mg/dL Calcium 9.2 (8.4-10.2) mg/dL Magnesium 2.2 (1.6-2.3) mg/dL Total Bilirubin 0.6 (0.2-1.3) mg/dL AST 42 (17-59) U/L ALT 33 (4-49) U/L Alkaline Phosphatase 72 (38-126) U/L Total Protein 6.2 L (6.3-8.2) g/dL Albumin 4.0 (3.5-5.0) g/dL Urine Opiates Screen (NotDetected) Ur Oxycodone Screen (NotDetected) Urine Methadone Screen (NotDetected) Ur Barbiturates Screen (NotDetected) U Tricyclic Antidepress (NotDetected) Ur Phencyclidine Scrn (NotDetected) Ur Amphetamines Screen (NotDetected) U Methamphetamines Scrn (NotDetected) U Benzodiazepines Scrn (NotDetected) Urine Cocaine Screen (NotDetected) U Marijuana (THC) Screen (NotDetected) Serum Alcohol 54 mg/dL Influenza Type A (PCR) Not Detected (Not Detectd) Influenza Type B (PCR) Not Detected (Not Detectd) RSV (PCR) Not Detected (Not Detectd) SARS-CoV-2 (PCR) Not Detected (Not Detectd) 07/04/24 Range/Units 07:10 WBC (3.8-10.6) k/uL RBC (4.30-5.90) m/uL Hgb (13.0-17.5) gm/dL Hct (39.0-53.0) % MCV (80.0-100.0) fL MCH (25.0-35.0) pg MCHC (31.0-37.0) g/dL RDW (11.5-15.5) % Plt Count (150-450) k/uL MPV Neutrophils % % Lymphocytes % % Monocytes % % Eosinophils % % Basophils % % Neutrophils # (1.3-7.7) k/uL Lymphocytes # (1.0-4.8) k/uL Monocytes # (0-1.0) k/uL Eosinophils # (0-0.7) k/uL Basophils # (0-0.2) k/uL Sodium (137-145) mmol/L Potassium (3.5-5.1) mmol/L Chloride (98-107) mmol/L Carbon Dioxide (22-30) mmol/L Anion Gap mmol/L BUN (9-20) mg/dL Creatinine (0.66-1.25) mg/dL Est GFR (CKD-EPI)AfAm (>60 ml/min/1.73 sqM) Est GFR (CKD-EPI)NonAf (>60 ml/min/1.73 sqM) Glucose (74-99) mg/dL Calcium (8.4-10.2) mg/dL Magnesium (1.6-2.3) mg/dL Total Bilirubin (0.2-1.3) mg/dL AST (17-59) U/L ALT (4-49) U/L Alkaline Phosphatase (38-126) U/L Total Protein (6.3-8.2) g/dL Albumin (3.5-5.0) g/dL Urine Opiates Screen Not Detected (NotDetected) Ur Oxycodone Screen Not Detected (NotDetected) Urine Methadone Screen Not Detected (NotDetected) Ur Barbiturates Screen Not Detected (NotDetected) U Tricyclic Antidepress Not Detected (NotDetected) Ur Phencyclidine Scrn Not Detected (NotDetected) Ur Amphetamines Screen Not Detected (NotDetected) U Methamphetamines Scrn Not Detected (NotDetected) U Benzodiazepines Scrn Detected H (NotDetected) Urine Cocaine Screen Detected H (NotDetected) U Marijuana (THC) Screen Detected H (NotDetected) Serum Alcohol mg/dL Influenza Type A (PCR) (Not Detectd) Influenza Type B (PCR) (Not Detectd) RSV (PCR) (Not Detectd) SARS-CoV-2 (PCR) (Not Detectd) Disposition <Fawn Bah - Last Filed: 07/04/24 03:42> Decision Time: 12:04 <Jayjay Lopes - Last Filed: 07/04/24 12:04> Clinical Impression: Suicidal ideation Disposition: ADMITTED IP TO THIS HOSP Condition: Fair Referrals: Chris Gauthier MD [Primary Care Provider] - 1-2 days
[2024-07-04] MEDS: LORazepam 1 MG TAB PO STA ×2 (01:00→06:33)
[2024-07-04] MEDS: ONDANSETRON 4 MG/2 ML VIAL IVP STA (01:26)
[2024-07-04] MEDS: SODIUM CHLORIDE 0.9% 1,000 ML IV STA (01:26)
[2024-07-04] MEDS: NICOTINE 21MG/24HR PATCH TRANSDERM STA (01:28)
[2024-07-04 01:58] LABS: Basophils % (A) 0 %; Eosinophils # (A) 0.4 k/uL (0-0.7); Eosinophils % (A) 4 %; HCT 49.4 % (39.0-53.0); HGB 16.3 gm/dL (13.0-17.5); Lymphocytes # (A) 2.5 k/uL (1.0-4.8); Lymphocytes % (A) 26 %; MCH 29.3 pg (25.0-35.0); MCV 88.9 fL (80.0-100.0); Mean Platelet Volume 7.4; Monocytes % (A) 11 %; Neutrophils # (A) 5.3 k/uL (1.3-7.7); Neutrophils % (A) 56 %; Platelet Count 281 k/uL (150-450); RBC 5.56 m/uL (4.30-5.90); RDW 14.5 % (11.5-15.5); WBC 9.4 k/uL (3.8-10.6)
[2024-07-04 02:02] LABS: ALT 33 U/L (4-49); AST 42 U/L (17-59); African American GFR (CKD) 84 (>60 ml/min/1.73 sqM); Alcohol 54 mg/dL; Alkaline Phosphatase 72 U/L (38-126); Anion Gap 8 mmol/L; Blood Urea Nitrogen 9 mg/dL (9-20); Calcium 9.2 mg/dL (8.4-10.2); Carbon Dioxide 26 mmol/L (22-30); Chloride 106 mmol/L (98-107); Glucose 98 mg/dL (74-99); Magnesium 2.2 mg/dL (1.6-2.3); Non-African American GFR(CKD) 72 (>60 ml/min/1.73 sqM); Potassium 3.8 mmol/L (3.5-5.1); Sodium 140 mmol/L (137-145); Total Bilirubin 0.6 mg/dL (0.2-1.3); Total Protein 6.2 g/dL (6.3-8.2)
[2024-07-04] MEDS: NAPROXEN 250 MG TAB PO STA (05:20)
[2024-07-04 07:38] LABS: Amphetamine Screen,Urine Not Detected (NotDetected); Barbiturate Screen,Urine Not Detected (NotDetected); Benzodiazepines Screen,Urine Detected (NotDetected); Cocaine Screen,Urine Detected (NotDetected); Methadone Screen, Urine Not Detected (NotDetected); Opiate Screen,Urine Not Detected (NotDetected); Oxycodone Screen, Urine Not Detected (NotDetected); Phencyclidine Screen,Urine Not Detected (NotDetected); Tricyclic Antidepressant,Urine Not Detected (NotDetected); Urn Cannabinoid Scrn Detected (NotDetected)
[2024-07-04] MEDS ORDERED: MAG HYDROX/AL HYDROX/SIMETH 355 ML BOTTLE PO PRN (14:08)
[2024-07-04] MEDS ORDERED: MAGNESIUM HYDROXIDE 2,400 MG/30 ML CUP PO PRN (14:08)
[2024-07-04] MEDS ORDERED: IBUPROFEN 600 MG TAB PO PRN (14:08)
[2024-07-04] MEDS ORDERED: cloNIDine HCL 0.1 MG TAB PO PRN (14:09)
[2024-07-04] MEDS: ESCITALOPRAM 20 MG TAB PO SCH (21:43)
[2024-07-04] MEDS: LORazepam 1 MG TAB PO PRN (22:17)
[2024-07-05] MEDS: THIAMINE 100 MG TAB PO SCH (10:18)
[2024-07-05] MEDS: NICOTINE 21MG/24HR PATCH TRANSDERM SCH (10:18)
[2024-07-05] MEDS: FOLIC ACID 1 MG TAB PO SCH (13:20)
[2024-07-05] MEDS: MULTIVITAMINS, THERA 1 EACH TAB PO SCH (13:20)
[2024-07-05] MEDS: buPROPion XL 150 MG TAB.ER.24H PO SCH (13:20)
[2024-07-05 15:13] LABS: Basophils % (A) 0 %; Eosinophils # (A) 0.5 k/uL (0-0.7); Eosinophils % (A) 8 %; HCT 48.2 % (39.0-53.0); HGB 15.6 gm/dL (13.0-17.5); Lymphocytes # (A) 1.9 k/uL (1.0-4.8); Lymphocytes % (A) 30 %; MCH 29.5 pg (25.0-35.0); MCHC 32.4 g/dL (31.0-37.0); MCV 90.9 fL (80.0-100.0); Mean Platelet Volume 7.5; Monocytes # (A) 0.6 k/uL (0-1.0); Monocytes % (A) 9 %; Neutrophils # (A) 3.1 k/uL (1.3-7.7); Neutrophils % (A) 49 %; Platelet Count 254 k/uL (150-450); RDW 14.5 % (11.5-15.5); WBC 6.3 k/uL (3.8-10.6)
[2024-07-05 15:22] LABS: ALT 26 U/L (4-49); AST 30 U/L (17-59); African American GFR (CKD) 88 (>60 ml/min/1.73 sqM); Albumin 3.2 g/dL (3.5-5.0); Alkaline Phosphatase 64 U/L (38-126); Anion Gap 1 mmol/L; Bilirubin,Unconjugated 0.5 mg/dL (0.0-1.1); Blood Urea Nitrogen 10 mg/dL (9-20); Calcium 8.9 mg/dL (8.4-10.2); Carbon Dioxide 29 mmol/L (22-30); Chloride 106 mmol/L (98-107); Glucose 82 mg/dL (74-99); Non-African American GFR(CKD) 76 (>60 ml/min/1.73 sqM); Potassium 4.3 mmol/L (3.5-5.1); Sodium 136 mmol/L (137-145); Total Bilirubin 0.5 mg/dL (0.2-1.3); Total Protein 5.2 g/dL (6.3-8.2)
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
--- NOTE | 2024-07-05 23:20 | HP ---
HISTORY AND PHYSICAL CHIEF COMPLAINT: Major depression with suicidal thoughts and alcoholism. HISTORY OF PRESENT ILLNESS: This is another recent admission for this 48-year-old white male, chronic alcoholic. He was admitted to [facility] with alcoholism and DTs, signed out, came to [facility], was admitted for the same diagnoses and signed out again. This time, he came back to the emergency room intoxicated stating that he wanted to kill himself. REVIEW OF SYSTEMS: Unobtainable. He is not cooperative and not answering questions. Past medical history, family history, and personal and social histories are otherwise unremarkable or not obtainable at this time. PHYSICAL EXAMINATION: VITAL SIGNS: Normal. HEAD, EARS, EYES, NOSE, MOUTH, AND THROAT: Normal. CHEST: Clear. CARDIAC: Normal. ABDOMEN: Soft. EXTREMITIES: Normal. NEUROLOGIC: He seems to be intact. He has not communicative. IMPRESSION: 1. Major depression with suicidal thoughts. 2. Chronic alcoholism. RECOMMENDATIONS: None. MMAPURVAL / PABLITON: [id number] /
[2024-07-06 07:55] LABS: Chol/HDL Ratio 1.87 Ratio; LDL Cholesterol,Calculated 65.3 mg/dL (0.0-131.0); VLDL Calculation 13.14 mg/dL (5.00-40.00)
[2024-07-06] MEDS: LORazepam 1 MG TAB PO PRN (13:38)
[2024-07-06] MEDS: ACETAMINOPHEN TAB 325 MG TAB PO PRN (16:43)
[2024-07-06] MEDS: diazePAM 5 MG TAB PO STA (16:56)
[2024-07-06] MEDS: hydrALAZINE HCL 50 MG TAB PO SCH (18:34)
[2024-07-06] MEDS: DIVALPROEX 500 MG TABLET.DR PO SCH (18:35)
--- NOTE | 2024-07-06 18:54 | P.PN ---
Progress Note - Text Progress Note Date: 07/06/24 Interval history: Patient was seen wandering the hallways and was directable and agreeable to speak with chart writer. He is more alert today. He reports his mood is "agitated" and he is frustrated with himself for his alcohol use, states "I need to stop drinking". 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 He states these things have happened because of his long-term substance abuse and struggling with cycles of sobriety and relapses. At this time, patient denies any suicidal or homicidal ideation, intent or plan, but appears despondent and severely depressed. Denies any auditory or visual hallucinations. Patient denies any side effects from the medications and has been compliant with meds. RN spoke to Dr. Gauthier who is patient's outpatient PCP and Dr. Gauthier started patient on Depakote 1000 mg Q12H (for seizures) but patient states he does not want to take this. He states he has never taken Depakote and feels it is too much for him. His past seizures were in the context of alcohol withdrawal and patient feels the Valium will be enough for him. He was also started on Hydralazine for blood pressure control since his Propranolol was discontinued due to cocaine use and his Clonidine is being held so as to not mask his alcohol withdrawal. Mental status exam: General Appearance: Patient appears to be stated, dressed in hospital gown, tall slender adult male. Behavior: No agitated behavior. Patient is calm but withdrawn and despondent. Speech: Patient's speech is fluent, soft monotone, and non-pressured. Mood/Affect: Mood is very depressed and agitated, affect is congruent and constricted. Suicidality/Homicidality: Patient denies having any suicidal or homicidal ideation intent or plan. Perceptions: Patient denies any auditory or visual hallucinations. Though content/process: There is no evidence of any delusional thought content and thought process is linear and goal-directed. Memory and concentration: AOX3, grossly intact for the purposes of this session. Judgment and insight: Poor in regards to substance abuse Assessment/Plan: Continue with current diagnosis. Patient continues to meet criteria for inpatient psychiatric admission for symptom stabilization and safety. Patient was given Valium 10 mg po x 1 at 16:49 for alcohol withdrawal, and started on Valium taper with 10 mg TID scheduled for alcohol withdrawal for the next 24 hours. Oncoming psychiatrist will need to reevaluate and taper dose as tolerated. Continue PRN Ativan per [facility] protocol for breakthrough withdrawals. Discontinue Wellbutrin XL due to alcohol withdrawal and risk of seizures. Monitor for medication compliance and for any psychotropic medication side effects. Will continue to monitor ongoing response to treatment. Encouraged participation in milieu.
[2024-07-06] MEDS: diazePAM 5 MG TAB PO SCH ×2 (20:18→20:24)
[2024-07-06] MEDS: THIAMINE 100 MG TAB PO SCH (20:19)
--- NOTE | 2024-07-07 13:09 | P.PN ---
Progress Note - Text Progress Note Date: 07/07/24 Interval History: Patient was seen laying in bed, asleep and was initially not agreeable to speak to assembly instructions writer, stating that he was tired. Patient later on signed 72-hour to be discharged home and was more cooperative with assembly instructions writer on second pass. He states not liking being in a structured environment and that this was the reason why he wishes to be discharged home. He states his withdrawal symptoms are better and he is still open to rehab however he is agreeable to outpatient rehab instead. Patient has had elevated CIWA scores and was 24 overnight however has been lower this morning on scheduled Valium. Patient states his last drink was on the first and that he was not concerned with seizures or withdrawal symptoms. He reports good response to both Lexapro and Wellbutrin in the past however given his alcohol use his Wellbutrin is being held at the moment. At this time patient denies any suicidal or homicidal ideations, intent or plan. Patient denies any auditory, visual hallucinations and denies any paranoia or delusions. Patient denies any side effects from the medications and has been compliant with meds. Mental Status Exam: General Appearance: Patient appears to be stated age is alert, directable, and initially uncooperative however was more cooperative upon second pass. Behavior: Patient is calmly laying without any agitated behavior. Speech: Patient's speech is fluent and nonpressured. Mood/Affect: Mood is "tired", affect is congruent and constricted. Suicidality/Homicidality: Patient denies having any suicidal or homicidal ideation intent or plan. Perceptions: Patient denies any visual hallucinations and denies any auditory hallucinations Though content/process: There is no evidence of any delusional thought content and thought process is linear. Memory and concentration: AOX3, grossly intact for the purposes of this session Judgment and insight: poor Assessment Unspecified depressive disorder, r/o MDD versus substance-induced depressive disorder Alcohol use disorder, severe in withdrawal Cocaine use disorder, severe in withdrawal Cannabis use disorder Plan: -Patient continues to meet criteria for inpatient psychiatric admission for symptom stabilization and safety. Patient has signed adult voluntary form and medication consent and was placed in patient's chart. Patient today signed a 72-hour to be discharged by 07/10 at 12:41 -Medications: Continue Lexapro 20 mg at bedtime depression and Valium 10 mg 3 times daily for withdrawal symptoms. Will look into possibly restarting Wellbutrin however given patient's alcohol use and withdrawal symptoms we will continue holding this for right now. Will also look into possibly starting nal trexone in the upcoming days given alcohol use -When necessary Ativan and Haldol for agitation/aggression. -Labs: Reviewed -NRT -nicotine patch -CIWA protocol with Ativan PRN for ETOH withdrawal. -SW on board for discharge planning. Encouraged the patient to participate in milieu. Patient signed 72-hour today. Anticipate discharge home later this week pending stabilization of withdrawal symptoms
[2024-07-07] MEDS: diazePAM 5 MG TAB PO SCH (17:51)
[2024-07-08 06:43] VITALS: TEMP 97.9
--- NOTE | 2024-07-08 12:36 | P.PN ---
Progress Note - Text Progress Note Date: 07/08/24 Interval History: Patient was seen and in bed and was directable and agreeable to speak with kylie campos in his room. He reports feeling better today as he feels like his withdrawal symptoms are improving. He declined any cravings for alcohol. CIWA's overnight have ranged from 2-16 patient did receive Ativan 2 mg for elevated CIWA's. Patient reports difficulties with sleep however reports good appetite. He is not interested in starting naltrexone at this time for cravings however is interested in outpatient rehab and states he has contacted [facility] for this. He rates his depression 4 out of 10 in severity. Patient continues to feel like he does not need to be here and his 72-hour is scheduled for 07/10. At this time patient denies any suicidal or homicidal ideations, intent or plan. Patient denies any auditory, visual hallucinations and denies any paranoia or delusions. Patient denies any side effects from the medications and has been compliant with some meds however has been refusing Depakote and Valium intermittently. Mental Status Exam: General Appearance: Patient appears to be stated age is somnolent however directable and more cooperative. Behavior: Patient is calmly laying without any agitated behavior. Speech: Patient's speech is fluent and nonpressured. Mood/Affect: Mood is improving mildly, affect is congruent and constricted. Suicidality/Homicidality: Patient denies having any suicidal or homicidal ideation intent or plan. Perceptions: Patient denies any visual hallucinations and denies any auditory hallucinations Though content/process: There is no evidence of any delusional thought content and thought process is linear and logical Memory and concentration: AOX3, grossly intact for the purposes of this session Judgment and insight: poor Assessment Unspecified depressive disorder, r/o MDD versus substance-induced depressive disorder Alcohol use disorder, severe in withdrawal Cocaine use disorder, severe in withdrawal Cannabis use disorder Plan: -Patient continues to meet criteria for inpatient psychiatric admission for symptom stabilization and safety. Patient has signed adult voluntary form and medication consent and was placed in patient's chart. Patient signed 72-hour to be discharged by 07/10 at 12:41 PM -Medications: Taper Valium down to 10 mg twice daily for alcohol withdrawal, continue Lexapro 20 mg at bedtime for depression. Patient today declined starting naltrexone for alcohol cravings -When necessary Ativan and Haldol for agitation/aggression. -Labs: Reviewed -NRT -nicotine patch -CIWA protocol with Ativan PRN for ETOH withdrawal. Valium taper -SW on board for discharge planning. Encouraged the patient to participate in milieu. Anticipate discharge on 07/10 by 12:41 PM as patient signed 72 hour AMA yesterday
[2024-07-08] MEDS: diazePAM 5 MG TAB PO SCH (21:13)
--- NOTE | 2024-07-09 12:36 | P.PN ---
Progress Note - Text Progress Note Date: 07/09/24 Interval History: Patient was seen laying in bed and was directable and agreeable to speak with continuity writer in his room. Patient notably is always seen asleep in bed during encounters with minimal conversation with continuity writer. Staff reported patient overnight had poor sleep however patient notably is always sleep during the day he was encouraged today to minimize his naps. CIWA's have been up to 13 overnight however patient today continues to report improvements in his withdrawal symptoms. He is no longer interested in going to rehab and wishes to be discharged to a jail. Patient was agreeable to take Depakote yesterday for his seizures and this was highly encouraged today as well. At this time patient denies any suicidal or homicidal ideations, intent or plan. Patient denies any auditory, visual hallucinations and denies any paranoia or delusions. Patient denies any side effects from the medications and has been compliant with meds. Mental Status Exam: General Appearance: Patient appears to be stated age is alert, directable, and cooperative. Patient has short hair Behavior: Patient is calmly laying without any agitated behavior. Speech: Patient's speech is brief with low volume and tone. Mood/Affect: Mood is "tired", affect is congruent and constricted. Suicidality/Homicidality: Patient denies having any suicidal or homicidal ideation intent or plan. Perceptions: Patient denies any visual hallucinations and denies any auditory hallucinations Though content/process: There is no evidence of any delusional thought content and thought process is linear and goal-directed. Memory and concentration: AOX3, grossly intact for the purposes of this session Judgment and insight: poor Assessment Unspecified depressive disorder, r/o MDD versus substance-induced depressive disorder Alcohol use disorder, severe, in withdrawal Cocaine use disorder, severe, in withdrawal Cannabis use disorder Plan: -Patient continues to meet criteria for inpatient psychiatric admission for symptom stabilization and safety. Patient has signed adult voluntary form and medication consent and was placed in patient's chart. -Medications: Decrease Valium to 10 mg daily today for alcohol withdrawal with a plan to discontinue this medication tomorrow given patient's AMA. Will continue Lexapro 20 mg at bedtime for depression -When necessary Ativan and Haldol for agitation/aggression. -Labs: Reviewed -NRT -nicotine patch -CIWA protocol with Ativan PRN for ETOH withdrawal. Valium taper -SW on board for discharge planning. Encouraged the patient to participate in milieu. Patient to be discharged to jail tomorrow as patient signed 72-hour to leave the facility by 12:41 PM. He no longer is agreeable to any form of rehab
[2024-07-10 10:01] VITALS: BP 99/64; PULSE 89; RESP 20
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
== END 2024-07-10 12:55 | disposition home or self-care (01) | DRG 754 ==
LOC: EC 23:55 → 3MHU 07-04 13:57
PROVIDERS: ADMIT Psychiatry & Neurology Psychiatry; ATTEND Psychiatry & Neurology Psychiatry
PROC: HZ2ZZZZ Detoxification Services for Substance Abuse Treatment (ICD-10-PCS; principal; 2024-07-04)
DX: F32.A Depression, unspecified (principal); F41.9 Anxiety disorder, unspecified; F17.290 Nicotine dependence, other tobacco product, uncomplicated; F14.23 Cocaine dependence with withdrawal; F12.10 Cannabis abuse, uncomplicated; F10.239 Alcohol dependence with withdrawal, unspecified; G47.10 Hypersomnia, unspecified; R45.851 Suicidal ideations; R56.9 Unspecified convulsions; Z79.899 Other long term (current) drug therapy; Z71.41 Alcohol abuse counseling and surveillance of alcoholic; Z71.51 Drug abuse counseling and surveillance of drug abuser; Z56.0 Unemployment, unspecified
CPT/HCPCS: 36415; 80053; 80061; 80306; 80320; 82075; 82248; 83036; 83735; 84443; 85025; 87636; 96361; 96374; 99285